=== PATIENT | male | born 1985 | race Caucasian/White ===

== ENCOUNTER 2016-08-03 14:14 | Inpatient (IN) | payer OTHER ==
[2016-08-03 14:56] VITALS: BMI 23.3
--- NOTE | 2016-08-03 17:18 | HP ---
Admission [facility] Chief Complaint: I need to stop drinking , i need help and my program encouraged me to come . Allergies/Adverse Reactions: Allergies Allergy/AdvReac Type Severity Reaction Status Date / Time No Known Allergies Allergy Verified 08/03/16 16:04 History of Present Illness: 30 y/o m pt with h/o binge drinking seeking rehab. Exam Limitations: No Limitations - Ebola screening Have you traveled outside of the country in the last 21 days: No Have you had contact with anyone from an Ebola affected area: No Have you been sick,other than usual withdrawal symptoms: No Do you have a fever: No - Review of Systems Constitutional: Loss of Appetite EENT: reports: No Symptoms Reported Respiratory: reports: No Symptoms reported Cardiac: reports: No Symptoms Reported GI: reports: No Symptoms Reported : reports: No Symptoms Reported Musculoskeletal: reports: No Symptoms Reported Integumentary: reports: No Symptoms Reported Neuro: reports: Tremors, Other (black hx) Endocrine: reports: No Symptoms Reported Hematology: reports: No Symptoms Reported Psychiatric: reports: Agitated, Anxious, Depressed Other Systems: Reviewed and Negative Patient History - Patient Medical History Hx Anemia: No Hx Asthma: No Hx Chronic Obstructive Pulmonary Disease (COPD): No Hx Cancer: No Hx Cardiac Disorders: No Hx Congestive Heart Failure: No Hx Hypertension: No Hx Hypercholesterolemia: No Hx Pacemaker: No HX Cerebrovascular Accident: No Hx Seizures: No (but h/o blackout -last 1 week ago ) Hx Dementia: No Hx Diabetes: No Hx Gastrointestinal Disorders: No Hx Liver Disease: No Hx Genitourinary Disorders: No Hx Sexually Transmitted Disorders: No Hx Renal Disease (ESRD): No Hx Thyroid Disease: No Hx Human Immunodeficiency Virus (HIV): No (2014-negative ) Hx Hepatitis C: No Hx Depression: Yes Hx Suicide Attempt: No Hx Bipolar Disorder: No Hx Schizophrenia: No - Patient Surgical History Past Surgical History: No - PPD History Documented Results: Negative w/o proof PPD to be Administered?: Yes - Reproductive History Patient is a Female of Child Bearing Age (11 -55 yrs old): No - Smoking Cessation Smoking history: Current every day smoker Have you smoked in the past 12 months: Yes Aproximately how many cigarettes per day: 10 Cigars Per Day: 0 Hx Chewing Tobacco Use: No Initiated information on smoking cessation: Yes 'Breaking Loose' booklet given: 08/03/16 - Substance & Tx. History Hx Alcohol Use: Yes Hx Substance Use: No Substance Use Type: Alcohol Hx Substance Use Treatment: Yes ([facility]) - Substances Abused Alcohol Route: Oral Frequency: 1-2 times per week Amount used: Vodka 1 liter /use Age of first use: 15 Date of Last Use: 08/02/16 Family Disease History - Family Disease History Family Disease History: CA: Father (rectal CA) Admission Physical Exam [facility] - Vital Signs Vital Signs: Vital Signs - 24 hr 08/03/16 14:28 Temperature 96.8 F L Pulse Rate 76 Respiratory 18 Rate Blood Pressure 150/81 30 y/o m pt [id number] nad ambulating well , cooperative with exam. Cleared for Admission [facility] - Detox or Rehab Claeared for Rehab Admission: Yes [facility] Breath Alcohol Content Breath Alcohol Content: 0 Urine Drug Screen - Results Drug Screen Negative: No Urine Drug Screen Results: BZO-Benzodiazepines
[2016-08-03] MEDS ORDERED: guaiFENesin/D-METHORPHAN HB 10 ML UNIT-DOSE CUPS PO PRN (17:27)
[2016-08-03] MEDS ORDERED: MENTHOL/PHENOL 1 EACH UD MM PRN (17:27)
[2016-08-03] MEDS ORDERED: MAGNESIUM HYDROX 2400MG/30ML ORAL SUSPENSION 30 ML CUP PO PRN (17:27)
[2016-08-03] MEDS ORDERED: P-EPHED 60MG/TRIPROLIDI 2.5MG TABLET PO PRN (17:27)
[2016-08-03] MEDS ORDERED: ACETAMINOPHEN 325 MG TABLET (FP) PO PRN (17:27)
[2016-08-03] MEDS ORDERED: IBUPROFEN 400 MG TABLET (FP) PO PRN (17:27)
[2016-08-03] MEDS ORDERED: LOPERAMIDE HCL 2 MG CAPSULE PO PRN (17:27)
[2016-08-03] MEDS ORDERED: diphenhydrAMINE HCL 50 MG CAPSULE PO PRN (17:27)
[2016-08-03] MEDS ORDERED: MAG HYDROX/AL HYDROX/SIMETH 30 ML UNIT-DOSE CUP PO PRN (17:27)
[2016-08-03] MEDS ORDERED: MAGNESIUM CITRATE 300 ML BOTTLE PO PRN (17:27)
[2016-08-03] MEDS ORDERED: TUBERCULIN PPD 5 TU/0.1ML VIAL ID ONE (19:00)
[2016-08-03 20:10] LABS: URINE APPEARANCE CLEAR; URINE BILIRUBIN NEGATIVE (NEGATIVE); URINE BLOOD NEGATIVE (NEGATIVE); URINE COLOR LTYELLOW; URINE GLUCOSE (UA) NEGATIVE (NEGATIVE); URINE KETONE NEGATIVE (NEGATIVE); URINE LEUK ESTERASE NEGATIVE (NEGATIVE); URINE NITRITE NEGATIVE (NEGATIVE); URINE PROTEIN NEGATIVE (NEGATIVE); URINE UROBILINOGEN NEGATIVE E.U./dl (0.2-1.0)
[2016-08-03] MEDS: THIAMINE HCL 100 MG TABLET (FP) PO SCH (22:53)
[2016-08-03] MEDS ORDERED: MIRTAZAPINE 15 MG TABLET (FP) PO SCH (23:00)
--- NOTE | 2016-08-04 07:04 | HP ---
Psychiatrist Admission - Data Date of interview: 08/04/16 Admission source: [facility] Identifying data: This is the first [facility] Rehabilitation admission for this 30 years old single . unemployed on public assistance, domiciled living in a studio apartment Medical History: None reported. Smokes 10 cigarettes daily Psychiatric History: Reports that his first psychiatric contact was in Mar 2014 at [facility]. He saw Dr Abdul for anxiety and was prescribed Inderal 10 mg po TID and Zoloft 100 mg po daily. He attended [facility] till January 2016. From Apr 2016, he has been seeing Dr Marie at [facility] and in addition to Inderal 10 mg po TID and Zoloft 100 mg po daily, he was prescribed Remeron 15 mg po HS.Denies previous history of psychiatric hospitalization or suicidal attempt Physical/Sexual Abuse/Trauma History: Denies history of physical, sexualabuse as well as DV relationship Additional Comment: Reports history of 3 misdemeanor arrests on charges of DUI, DWI and Assult/menacing. Reports being currently on probation till March 2017 Vital Signs: Vital Signs - 24 hr 08/03/16 08/04/16 08/04/16 14:28 01:18 03:30 Temperature 96.8 F L Pulse Rate 76 Respiratory 18 20 18 Rate Blood Pressure 150/81 08/04/16 07:01 Temperature 97.8 F Pulse Rate 47 L Respiratory 18 Rate Blood Pressure 144/90 Allergies/Adverse Reactions: Allergies Allergy/AdvReac Type Severity Reaction Status Date / Time No Known Allergies Allergy Verified 08/03/16 16:04 Date of last physical exam: 08/03/16 Concur with the findings of this exam: Yes - Substance Abuse/Tx History Hx Alcohol Use: Yes Hx Substance Use: No Substance Use Type: Alcohol (Started drinking alcohol at age 15, consumes one liter 1-2 times weekly. Last drink on 08/02/16), Cocaine (Started using cocaine at age 16, consumes one gram weekly. Last used on in Mar 2016) Hx Substance Use Treatment: Yes (one previous inpt detox & 3 previous inpt rehab ) - Admission Criteria Previous failed treatment: No Poor recovery environment: Yes Comorbidities: Yes Lacks judgement: Yes Mental Status Exam - Mental Status Exam Alert and Oriented to: Time, Place, Person Cognitive Function: Fair Patient Appearance: Well Groomed Mood: Hopeful, Euthymic Affect: Appropriate Patient Behavior: Cooperative Speech Pattern: Clear Voice Loudness: Normal Thought Process: Goal Oriented Thought Disorder: Not Present Hallucinations: Denies Suicidal Ideation: Denies Homicidal Ideation: Denies Insight/Judgement: Fair Sleep: Fair Appetite: Good Muscle strength/Tone: Normal Gait/Station: Normal Psychiatric Findings - Problem List ([place] 1, 2,3) (1) Alcohol dependence Current Visit: Yes Status: Acute (2) Nicotine dependence Current Visit: Yes Status: Acute (3) Anxiety disorder Current Visit: Yes Status: Acute (4) Alcohol-induced anxiety disorder Current Visit: Yes Status: Ruled-out - Initial Treatment Plan Initial Treatment Plan: 1) Continue Inderal 10 mg po TID, Zoloft 100 mg po daily and Remeron 15 mg po HS. 2) Monitor progress
[2016-08-04] MEDS: SERTRALINE HCL 50 MG TABLET (FP) PO SCH (09:57)
[2016-08-04] MEDS: NICOTINE 21 MG/24 HOURS TOPICAL PATCH TD SCH (09:57)
[2016-08-04] MEDS: PRENATAL VITAMINS W/ FOLIC ACID TABLET (FP) PO SCH (09:57)
[2016-08-04 10:24] LABS: ALBUMIN 4.2 g/dl (3.4-5.0); BILIRUBIN,TOTAL 0.4 mg/dL (0.2-1.0); CALCIUM 9.3 mg/dL (8.5-10.1); CREATININE 1.4 mg/dL (0.7-1.3)
[2016-08-04 10:57] LABS: HIV 1 & 2 AB NEGATIVE; HIV 1 AGp24 NEGATIVE
[2016-08-04 11:11] LABS: MCH 32.5 pg (25.7-33.7); MCHC 34.2 g/dl (32.0-35.9); MEAN PLT VOLUME 9.4 fl (7.5-11.1); PLATELET COUNT 199 K/MM3 (134-434); WHITE BLOOD COUNT 8.4 K/mm3 (4.0-10.0)
[2016-08-04] MEDS ORDERED: SERTRALINE HCL 50 MG TABLET (FP) PO SCH (11:30)
[2016-08-04] MEDS: PROPRANOLOL HCL 10 MG TABLET (FP) PO SCH ×2 (14:23→21:41)
[2016-08-04] MEDS: THIAMINE HCL 100 MG TABLET (FP) PO SCH (21:41)
[2016-08-04] MEDS: MIRTAZAPINE 15 MG TABLET (FP) PO SCH (23:33)
[2016-08-05] MEDS: PROPRANOLOL HCL 10 MG TABLET (FP) PO SCH ×3 (06:09→21:13)
[2016-08-05] MEDS: SERTRALINE HCL 50 MG TABLET (FP) PO SCH (10:35)
[2016-08-05] MEDS: PRENATAL VITAMINS W/ FOLIC ACID TABLET (FP) PO SCH (10:35)
[2016-08-05] MEDS: NICOTINE 21 MG/24 HOURS TOPICAL PATCH TD SCH (10:35)
--- NOTE | 2016-08-05 10:35 | EKG ---
Test Reason : Blood Pressure : / mmHG Vent. Rate : 062 BPM Atrial Rate : 062 BPM P-R Int : 108 ms QRS Dur : 092 ms QT Int : 430 ms P-R-T Axes : 072 071 040 degrees QTc Int : 436 ms SINUS RHYTHM NONSPECIFIC T WAVE ABNORMALITY ABNORMAL ECG NO PREVIOUS ECGS AVAILABLE Confirmed by KEVIN MOORE, HUNTER ([id number]) on 08/05/2016 10:34:43 AM Referred By: Ondina Haines Confirmed By:HUNTER BROWN MD
[2016-08-05] MEDS: THIAMINE HCL 100 MG TABLET (FP) PO SCH (21:13)
[2016-08-05] MEDS: MIRTAZAPINE 15 MG TABLET (FP) PO SCH (21:13)
[2016-08-06] MEDS: PROPRANOLOL HCL 10 MG TABLET (FP) PO SCH ×3 (06:16→21:17)
[2016-08-06] MEDS: PRENATAL VITAMINS W/ FOLIC ACID TABLET (FP) PO SCH (10:16)
[2016-08-06] MEDS: NICOTINE 21 MG/24 HOURS TOPICAL PATCH TD SCH (10:16)
[2016-08-06] MEDS: SERTRALINE HCL 50 MG TABLET (FP) PO SCH (10:16)
[2016-08-06] MEDS: THIAMINE HCL 100 MG TABLET (FP) PO SCH (21:16)
[2016-08-06] MEDS: MIRTAZAPINE 15 MG TABLET (FP) PO SCH (21:17)
[2016-08-07] MEDS: PROPRANOLOL HCL 10 MG TABLET (FP) PO SCH ×3 (06:40→21:19)
[2016-08-07] MEDS: NICOTINE 21 MG/24 HOURS TOPICAL PATCH TD SCH (10:10)
[2016-08-07] MEDS: PRENATAL VITAMINS W/ FOLIC ACID TABLET (FP) PO SCH (10:10)
[2016-08-07] MEDS: SERTRALINE HCL 50 MG TABLET (FP) PO SCH (10:10)
[2016-08-07] MEDS: THIAMINE HCL 100 MG TABLET (FP) PO SCH (21:19)
[2016-08-07] MEDS: MIRTAZAPINE 15 MG TABLET (FP) PO SCH (21:19)
[2016-08-08] MEDS: PROPRANOLOL HCL 10 MG TABLET (FP) PO SCH ×3 (06:16→21:10)
[2016-08-08] MEDS: NICOTINE 21 MG/24 HOURS TOPICAL PATCH TD SCH (10:02)
[2016-08-08] MEDS: SERTRALINE HCL 50 MG TABLET (FP) PO SCH (10:02)
[2016-08-08] MEDS: PRENATAL VITAMINS W/ FOLIC ACID TABLET (FP) PO SCH (10:02)
[2016-08-08] MEDS: NICOTINE POLACRILEX 4 MG GUM BC PRN ×2 (10:21→14:33)
[2016-08-08] MEDS: MIRTAZAPINE 15 MG TABLET (FP) PO SCH (21:10)
[2016-08-08] MEDS: THIAMINE HCL 100 MG TABLET (FP) PO SCH (21:10)
[2016-08-09] MEDS: PROPRANOLOL HCL 10 MG TABLET (FP) PO SCH ×3 (06:15→21:17)
[2016-08-09] MEDS: PRENATAL VITAMINS W/ FOLIC ACID TABLET (FP) PO SCH (10:23)
[2016-08-09] MEDS: SERTRALINE HCL 50 MG TABLET (FP) PO SCH (10:23)
[2016-08-09] MEDS: NICOTINE 21 MG/24 HOURS TOPICAL PATCH TD SCH (10:25)
[2016-08-09] MEDS: NICOTINE POLACRILEX 4 MG GUM BC PRN ×2 (10:26→14:14)
[2016-08-09] MEDS: MIRTAZAPINE 15 MG TABLET (FP) PO SCH (21:17)
[2016-08-09] MEDS: THIAMINE HCL 100 MG TABLET (FP) PO SCH (21:17)
[2016-08-10] MEDS: PROPRANOLOL HCL 10 MG TABLET (FP) PO SCH ×3 (06:00→21:13)
[2016-08-10] MEDS: PRENATAL VITAMINS W/ FOLIC ACID TABLET (FP) PO SCH (10:17)
[2016-08-10] MEDS: SERTRALINE HCL 50 MG TABLET (FP) PO SCH (10:17)
[2016-08-10] MEDS: NICOTINE 21 MG/24 HOURS TOPICAL PATCH TD SCH (10:17)
[2016-08-10] MEDS: NICOTINE POLACRILEX 4 MG GUM BC PRN (10:18)
[2016-08-10] MEDS: MIRTAZAPINE 15 MG TABLET (FP) PO SCH (21:13)
[2016-08-10] MEDS: THIAMINE HCL 100 MG TABLET (FP) PO SCH (21:13)
[2016-08-11] MEDS: PROPRANOLOL HCL 10 MG TABLET (FP) PO SCH ×3 (06:03→21:05)
[2016-08-11] MEDS: SERTRALINE HCL 50 MG TABLET (FP) PO SCH (10:31)
[2016-08-11] MEDS: PRENATAL VITAMINS W/ FOLIC ACID TABLET (FP) PO SCH (10:31)
[2016-08-11] MEDS: NICOTINE 21 MG/24 HOURS TOPICAL PATCH TD SCH (10:33)
[2016-08-11] MEDS: NICOTINE POLACRILEX 4 MG GUM BC PRN ×2 (10:33→18:27)
[2016-08-11] MEDS: THIAMINE HCL 100 MG TABLET (FP) PO SCH (21:05)
[2016-08-11] MEDS: MIRTAZAPINE 15 MG TABLET (FP) PO SCH (21:05)
[2016-08-12] MEDS: PROPRANOLOL HCL 10 MG TABLET (FP) PO SCH ×3 (06:23→21:35)
[2016-08-12] MEDS: SERTRALINE HCL 50 MG TABLET (FP) PO SCH (10:55)
[2016-08-12] MEDS: PRENATAL VITAMINS W/ FOLIC ACID TABLET (FP) PO SCH (10:55)
[2016-08-12] MEDS: NICOTINE 21 MG/24 HOURS TOPICAL PATCH TD SCH (11:24)
[2016-08-12] MEDS: NICOTINE POLACRILEX 4 MG GUM BC PRN ×3 (11:26→21:35)
[2016-08-12] MEDS: THIAMINE HCL 100 MG TABLET (FP) PO SCH (21:35)
[2016-08-12] MEDS: MIRTAZAPINE 15 MG TABLET (FP) PO SCH (21:35)
[2016-08-13] MEDS: PROPRANOLOL HCL 10 MG TABLET (FP) PO SCH ×3 (06:38→21:36)
[2016-08-13] MEDS: NICOTINE POLACRILEX 4 MG GUM BC PRN ×2 (06:39→10:30)
[2016-08-13] MEDS: SERTRALINE HCL 50 MG TABLET (FP) PO SCH (10:29)
[2016-08-13] MEDS: PRENATAL VITAMINS W/ FOLIC ACID TABLET (FP) PO SCH (10:29)
[2016-08-13] MEDS: NICOTINE 21 MG/24 HOURS TOPICAL PATCH TD SCH (10:29)
[2016-08-13] MEDS: MIRTAZAPINE 15 MG TABLET (FP) PO SCH (21:35)
[2016-08-13] MEDS: THIAMINE HCL 100 MG TABLET (FP) PO SCH (21:36)
[2016-08-14] MEDS: PROPRANOLOL HCL 10 MG TABLET (FP) PO SCH ×3 (06:02→21:08)
[2016-08-14] MEDS: PRENATAL VITAMINS W/ FOLIC ACID TABLET (FP) PO SCH (10:30)
[2016-08-14] MEDS: SERTRALINE HCL 50 MG TABLET (FP) PO SCH (10:30)
[2016-08-14] MEDS: NICOTINE 21 MG/24 HOURS TOPICAL PATCH TD SCH (10:30)
[2016-08-14] MEDS: NICOTINE POLACRILEX 4 MG GUM BC PRN ×3 (10:31→21:08)
[2016-08-14] MEDS: MIRTAZAPINE 15 MG TABLET (FP) PO SCH (21:08)
[2016-08-14] MEDS: THIAMINE HCL 100 MG TABLET (FP) PO SCH (21:08)
[2016-08-15] MEDS: PROPRANOLOL HCL 10 MG TABLET (FP) PO SCH ×3 (05:59→21:20)
[2016-08-15] MEDS: NICOTINE POLACRILEX 4 MG GUM BC PRN ×4 (06:24→21:20)
[2016-08-15] MEDS: PRENATAL VITAMINS W/ FOLIC ACID TABLET (FP) PO SCH (10:37)
[2016-08-15] MEDS: SERTRALINE HCL 50 MG TABLET (FP) PO SCH (10:37)
[2016-08-15] MEDS: NICOTINE 21 MG/24 HOURS TOPICAL PATCH TD SCH (10:38)
[2016-08-15] MEDS: THIAMINE HCL 100 MG TABLET (FP) PO SCH (21:20)
[2016-08-15] MEDS: MIRTAZAPINE 15 MG TABLET (FP) PO SCH (21:20)
[2016-08-16] MEDS: PROPRANOLOL HCL 10 MG TABLET (FP) PO SCH ×3 (06:13→21:17)
[2016-08-16] MEDS: NICOTINE POLACRILEX 4 MG GUM BC PRN ×3 (06:14→14:19)
[2016-08-16] MEDS: PRENATAL VITAMINS W/ FOLIC ACID TABLET (FP) PO SCH (10:15)
[2016-08-16] MEDS: NICOTINE 21 MG/24 HOURS TOPICAL PATCH TD SCH (10:16)
[2016-08-16] MEDS: SERTRALINE HCL 50 MG TABLET (FP) PO SCH (10:16)
[2016-08-16] MEDS: THIAMINE HCL 100 MG TABLET (FP) PO SCH (21:16)
[2016-08-16] MEDS: MIRTAZAPINE 15 MG TABLET (FP) PO SCH (21:16)
[2016-08-17] MEDS: PROPRANOLOL HCL 10 MG TABLET (FP) PO SCH ×3 (06:50→21:14)
[2016-08-17] MEDS: NICOTINE POLACRILEX 4 MG GUM BC PRN ×4 (06:51→21:14)
[2016-08-17] MEDS: NICOTINE 21 MG/24 HOURS TOPICAL PATCH TD SCH (10:18)
[2016-08-17] MEDS: PRENATAL VITAMINS W/ FOLIC ACID TABLET (FP) PO SCH (10:18)
[2016-08-17] MEDS: SERTRALINE HCL 50 MG TABLET (FP) PO SCH (10:18)
[2016-08-17] MEDS: MIRTAZAPINE 15 MG TABLET (FP) PO SCH (21:14)
[2016-08-17] MEDS: THIAMINE HCL 100 MG TABLET (FP) PO SCH (21:14)
[2016-08-18] MEDS: PROPRANOLOL HCL 10 MG TABLET (FP) PO SCH ×3 (06:36→21:06)
[2016-08-18] MEDS: NICOTINE POLACRILEX 4 MG GUM BC PRN ×3 (06:38→14:13)
[2016-08-18] MEDS: PRENATAL VITAMINS W/ FOLIC ACID TABLET (FP) PO SCH (10:21)
[2016-08-18] MEDS: SERTRALINE HCL 50 MG TABLET (FP) PO SCH (10:21)
[2016-08-18] MEDS: NICOTINE 21 MG/24 HOURS TOPICAL PATCH TD SCH (10:21)
[2016-08-18] MEDS: THIAMINE HCL 100 MG TABLET (FP) PO SCH (21:06)
[2016-08-18] MEDS: MIRTAZAPINE 15 MG TABLET (FP) PO SCH (21:06)
[2016-08-19] MEDS: PROPRANOLOL HCL 10 MG TABLET (FP) PO SCH ×3 (06:52→21:30)
[2016-08-19] MEDS: NICOTINE POLACRILEX 4 MG GUM BC PRN ×3 (06:53→14:06)
[2016-08-19] MEDS: SERTRALINE HCL 50 MG TABLET (FP) PO SCH (10:22)
[2016-08-19] MEDS: PRENATAL VITAMINS W/ FOLIC ACID TABLET (FP) PO SCH (10:22)
[2016-08-19] MEDS: NICOTINE 21 MG/24 HOURS TOPICAL PATCH TD SCH (10:23)
[2016-08-19] MEDS: THIAMINE HCL 100 MG TABLET (FP) PO SCH (21:30)
[2016-08-19] MEDS: MIRTAZAPINE 15 MG TABLET (FP) PO SCH (21:31)
[2016-08-20] MEDS: PROPRANOLOL HCL 10 MG TABLET (FP) PO SCH ×3 (06:37→21:10)
[2016-08-20] MEDS: NICOTINE POLACRILEX 4 MG GUM BC PRN ×3 (06:37→14:50)
[2016-08-20] MEDS: PRENATAL VITAMINS W/ FOLIC ACID TABLET (FP) PO SCH (10:14)
[2016-08-20] MEDS: NICOTINE 21 MG/24 HOURS TOPICAL PATCH TD SCH (10:15)
[2016-08-20] MEDS: SERTRALINE HCL 50 MG TABLET (FP) PO SCH (10:15)
[2016-08-20] MEDS: MIRTAZAPINE 15 MG TABLET (FP) PO SCH (21:10)
[2016-08-20] MEDS: THIAMINE HCL 100 MG TABLET (FP) PO SCH (21:10)
[2016-08-21] MEDS: PROPRANOLOL HCL 10 MG TABLET (FP) PO SCH ×3 (06:25→21:22)
[2016-08-21] MEDS: NICOTINE POLACRILEX 4 MG GUM BC PRN ×3 (06:26→14:11)
[2016-08-21] MEDS: SERTRALINE HCL 50 MG TABLET (FP) PO SCH (10:48)
[2016-08-21] MEDS: NICOTINE 21 MG/24 HOURS TOPICAL PATCH TD SCH (10:48)
[2016-08-21] MEDS: PRENATAL VITAMINS W/ FOLIC ACID TABLET (FP) PO SCH (10:48)
[2016-08-21] MEDS: MIRTAZAPINE 15 MG TABLET (FP) PO SCH (21:21)
[2016-08-21] MEDS: THIAMINE HCL 100 MG TABLET (FP) PO SCH (21:21)
[2016-08-22] MEDS: PROPRANOLOL HCL 10 MG TABLET (FP) PO SCH ×3 (05:51→21:03)
[2016-08-22] MEDS: NICOTINE POLACRILEX 4 MG GUM BC PRN ×3 (05:51→14:17)
[2016-08-22] MEDS: PRENATAL VITAMINS W/ FOLIC ACID TABLET (FP) PO SCH (10:17)
[2016-08-22] MEDS: NICOTINE 21 MG/24 HOURS TOPICAL PATCH TD SCH (10:17)
[2016-08-22] MEDS: SERTRALINE HCL 50 MG TABLET (FP) PO SCH (10:17)
[2016-08-22] MEDS: THIAMINE HCL 100 MG TABLET (FP) PO SCH (21:03)
[2016-08-22] MEDS: MIRTAZAPINE 15 MG TABLET (FP) PO SCH (21:03)
[2016-08-23] MEDS: NICOTINE POLACRILEX 4 MG GUM BC PRN ×3 (06:48→14:19)
[2016-08-23] MEDS: PROPRANOLOL HCL 10 MG TABLET (FP) PO SCH ×3 (06:48→21:00)
[2016-08-23] MEDS: PRENATAL VITAMINS W/ FOLIC ACID TABLET (FP) PO SCH (10:14)
[2016-08-23] MEDS: NICOTINE 21 MG/24 HOURS TOPICAL PATCH TD SCH (10:14)
[2016-08-23] MEDS: SERTRALINE HCL 50 MG TABLET (FP) PO SCH (10:15)
[2016-08-23] MEDS: THIAMINE HCL 100 MG TABLET (FP) PO SCH (21:00)
[2016-08-23] MEDS: MIRTAZAPINE 15 MG TABLET (FP) PO SCH (21:00)
[2016-08-24] MEDS: PROPRANOLOL HCL 10 MG TABLET (FP) PO SCH ×3 (06:04→21:11)
[2016-08-24] MEDS: PRENATAL VITAMINS W/ FOLIC ACID TABLET (FP) PO SCH (09:57)
[2016-08-24] MEDS: NICOTINE 21 MG/24 HOURS TOPICAL PATCH TD SCH (09:57)
[2016-08-24] MEDS: SERTRALINE HCL 50 MG TABLET (FP) PO SCH (09:58)
[2016-08-24] MEDS: NICOTINE POLACRILEX 4 MG GUM BC PRN ×2 (09:58→14:30)
[2016-08-24] MEDS: THIAMINE HCL 100 MG TABLET (FP) PO SCH (21:11)
[2016-08-24] MEDS: MIRTAZAPINE 15 MG TABLET (FP) PO SCH (21:11)
[2016-08-25] MEDS: NICOTINE POLACRILEX 4 MG GUM BC PRN ×3 (06:28→14:31)
[2016-08-25] MEDS: PROPRANOLOL HCL 10 MG TABLET (FP) PO SCH ×3 (06:28→21:07)
[2016-08-25] MEDS: SERTRALINE HCL 50 MG TABLET (FP) PO SCH (10:13)
[2016-08-25] MEDS: NICOTINE 21 MG/24 HOURS TOPICAL PATCH TD SCH (10:13)
[2016-08-25] MEDS: PRENATAL VITAMINS W/ FOLIC ACID TABLET (FP) PO SCH (10:13)
[2016-08-25] MEDS: THIAMINE HCL 100 MG TABLET (FP) PO SCH (21:07)
[2016-08-25] MEDS: MIRTAZAPINE 15 MG TABLET (FP) PO SCH (21:07)
[2016-08-26] MEDS: PROPRANOLOL HCL 10 MG TABLET (FP) PO SCH ×3 (07:12→21:03)
[2016-08-26] MEDS: SERTRALINE HCL 50 MG TABLET (FP) PO SCH (10:21)
[2016-08-26] MEDS: PRENATAL VITAMINS W/ FOLIC ACID TABLET (FP) PO SCH (10:21)
[2016-08-26] MEDS: NICOTINE 21 MG/24 HOURS TOPICAL PATCH TD SCH (10:21)
[2016-08-26] MEDS: NICOTINE POLACRILEX 4 MG GUM BC PRN (10:22)
[2016-08-26] MEDS: MIRTAZAPINE 15 MG TABLET (FP) PO SCH (21:02)
[2016-08-26] MEDS: THIAMINE HCL 100 MG TABLET (FP) PO SCH (21:02)
[2016-08-27] MEDS: PROPRANOLOL HCL 10 MG TABLET (FP) PO SCH ×3 (06:59→21:05)
[2016-08-27] MEDS: NICOTINE POLACRILEX 4 MG GUM BC PRN ×3 (07:01→13:24)
[2016-08-27] MEDS: NICOTINE 21 MG/24 HOURS TOPICAL PATCH TD SCH (10:01)
[2016-08-27] MEDS: SERTRALINE HCL 50 MG TABLET (FP) PO SCH (10:02)
[2016-08-27] MEDS: PRENATAL VITAMINS W/ FOLIC ACID TABLET (FP) PO SCH (10:02)
[2016-08-27] MEDS: THIAMINE HCL 100 MG TABLET (FP) PO SCH (21:04)
[2016-08-27] MEDS: MIRTAZAPINE 15 MG TABLET (FP) PO SCH (21:04)
[2016-08-28] MEDS: NICOTINE POLACRILEX 4 MG GUM BC PRN ×2 (06:23→10:17)
[2016-08-28] MEDS: PROPRANOLOL HCL 10 MG TABLET (FP) PO SCH ×3 (06:23→21:20)
[2016-08-28] MEDS: NICOTINE 21 MG/24 HOURS TOPICAL PATCH TD SCH (10:16)
[2016-08-28] MEDS: SERTRALINE HCL 50 MG TABLET (FP) PO SCH (10:16)
[2016-08-28] MEDS: PRENATAL VITAMINS W/ FOLIC ACID TABLET (FP) PO SCH (10:16)
[2016-08-28] MEDS: THIAMINE HCL 100 MG TABLET (FP) PO SCH (21:20)
[2016-08-28] MEDS: MIRTAZAPINE 15 MG TABLET (FP) PO SCH (21:20)
[2016-08-29] MEDS: NICOTINE POLACRILEX 4 MG GUM BC PRN ×4 (06:04→17:58)
[2016-08-29] MEDS: PROPRANOLOL HCL 10 MG TABLET (FP) PO SCH ×3 (06:04→21:02)
[2016-08-29] MEDS: SERTRALINE HCL 50 MG TABLET (FP) PO SCH (10:09)
[2016-08-29] MEDS: NICOTINE 21 MG/24 HOURS TOPICAL PATCH TD SCH (10:09)
[2016-08-29] MEDS: PRENATAL VITAMINS W/ FOLIC ACID TABLET (FP) PO SCH (10:09)
[2016-08-29] MEDS: MIRTAZAPINE 15 MG TABLET (FP) PO SCH (21:02)
[2016-08-29] MEDS: THIAMINE HCL 100 MG TABLET (FP) PO SCH (21:02)
[2016-08-30] MEDS: PROPRANOLOL HCL 10 MG TABLET (FP) PO SCH ×3 (06:23→21:05)
[2016-08-30] MEDS: NICOTINE POLACRILEX 4 MG GUM BC PRN ×4 (06:24→19:18)
--- NOTE | 2016-08-30 09:57 | PN ---
Psychiatric Progress Note Vital Signs: Vital Signs Period Temp Pulse Resp BP Sys/[place] Pulse Ox Last 24 Hr 98.6 F 66-68 18-18 121-131/71-80 Date of Session: 08/30/16 Chief Complaint:: Psychiatrist Discharge Note HPI: Patient addressing Alcohol Dependence comorbid with Nicotine Dependence and Anxiety Disorder Current Medications: Active Medications Generic Name Dose Route Start Last Admin Trade Name Freq PRN Reason Stop Dose Admin Acetaminophen 650 mg 08/03/16 17:27 Tylenol - PO Q4H PRN PAIN Al Hydroxide/Mg Hydroxide 30 ml 08/03/16 17:27 Mylanta Oral Suspension - PO Q6H PRN DYSPEPSIA Diphenhydramine HCl 50 mg 08/03/16 17:27 Benadryl - PO HSMR1 PRN INSOMNIA Eucalyptus/Menthol/Phenol/Sorbitol 1 each 08/03/16 17:27 Cepastat Lozenge - MM Q4H PRN SORE THROAT Guaifenesin 10 ml 08/03/16 17:27 Robitussin Dm - PO Q6H PRN COUGH Ibuprofen 400 mg 08/03/16 17:27 Motrin - PO Q6H PRN SEVERE PAIN Loperamide HCl 4 mg 08/03/16 17:27 Imodium - PO Q6H PRN DIARRHEA Magnesium Citrate 300 ml 08/03/16 17:27 Citroma - PO Q48H PRN CONSTIPATION Magnesium Hydroxide 30 ml 08/03/16 17:27 Milk Of Magnesia - PO DAILY PRN CONSTIPATION Mirtazapine 15 mg 08/04/16 22:00 08/29/16 21:02 Remeron - PO 15 mg HS CLAY Administration Nicotine 21 mg 08/04/16 10:00 08/29/16 10:09 Nicoderm Patch - TD 21 mg DAILY CLAY Administration Nicotine Polacrilex 4 mg 08/03/16 17:27 08/30/16 06:24 Nicorette Gum - BC 4 mg Q2H PRN Administration NICOTINE REPLACEMENT RX Multivit/Folic Acid/Iron 1 tab 08/04/16 10:00 08/29/16 10:09 Vitamins (Sjr) - PO 1 tab DAILY CLAY Administration Propranolol HCl 10 mg 08/04/16 14:00 08/30/16 06:23 Inderal - PO 10 mg TID CLAY Administration Pseudoephedrine/Triprolidine 1 combo 08/03/16 17:27 Actifed - PO TID PRN NASAL CONGESTION Sertraline HCl 100 mg 08/04/16 10:00 08/29/16 10:09 Zoloft - PO 100 mg DAILY CLAY Administration Thiamine HCl 100 mg 08/03/16 22:00 08/29/16 21:02 Vitamin B1 - PO 100 mg HS CLAY Administration Current Side Effect: No Lab tests ordered: Yes Lab tests reviewed: Yes Provider note:: Patient will complete this program on 08/31/16. He has met his treatment goals and will continue to address his issues in outpatient treatment at [facility] at [address] [place] [address]. He verbalized understanding of the consequences of his addiction and from his participation in this program , he has learned the importance oh having a sober network in order to maintain abstinence. He responded well to Inderal 10 mg po TID, Remeron 15 mg po HS and Zoloft 100 mg po daily. Scripts for 30 day supply of medication will be electronically transmitted to [facility] at [address] [place] [address]. He is stable for discharge on 08/31/16 Total face to face time:: 35 Psychiatric Treatment Plan - Problem List (1) Alcohol dependence Current Visit: Yes (2) Nicotine dependence Current Visit: Yes (3) Anxiety disorder Current Visit: Yes (4) Alcohol-induced anxiety disorder Current Visit: Yes Initial treatment plan: Patient will be discharged tomorrow and referred to [facility] for outpatient treatment
[2016-08-30] MEDS: NICOTINE 21 MG/24 HOURS TOPICAL PATCH TD SCH (10:02)
[2016-08-30] MEDS: PRENATAL VITAMINS W/ FOLIC ACID TABLET (FP) PO SCH (10:03)
[2016-08-30] MEDS: SERTRALINE HCL 50 MG TABLET (FP) PO SCH (10:03)
[2016-08-30] MEDS: MIRTAZAPINE 15 MG TABLET (FP) PO SCH (21:05)
[2016-08-30] MEDS: THIAMINE HCL 100 MG TABLET (FP) PO SCH (21:05)
[2016-08-31] MEDS: PROPRANOLOL HCL 10 MG TABLET (FP) PO SCH (06:15)
[2016-08-31 07:49] VITALS: BP 125/76; PULSE 69; TEMP 97.7
== END 2016-08-31 09:05 | disposition home or self-care (01) | DRG 772 ==
LOC: YASAS 14:14 → Y3W 18:31
PROVIDERS: ADMIT Psychiatry & Neurology Psychiatry; ATTEND Psychiatry & Neurology Psychiatry
PROC: HZ42ZZZ Group Counseling for Substance Abuse Treatment, Cognitive-Behavioral (ICD-10-PCS; principal; 2016-08-31)
DX: F10.280 Alcohol dependence with alcohol-induced anxiety disorder (principal); F17.210 Nicotine dependence, cigarettes, uncomplicated; F41.9 Anxiety disorder, unspecified
CPT/HCPCS: 36415; 80053; 81003; 85027; 86593; 87389; 93005; 93010

== ENCOUNTER 2021-08-17 04:36 | Emergency (ER) | payer OTHER ==
[2021-08-17 04:48] VITALS: BMI 32.5
[2021-08-17] MEDS ORDERED: ACETAMINOPHEN 1000 MG/100 ML BAG IVPB ONE (05:02)
[2021-08-17] MEDS ORDERED: SODIUM CHLORIDE 0.9% 500 ML INFUS.BAG IV ONE (05:02)
[2021-08-17] MEDS ORDERED: ACETAMINOPHEN INJECTION 100 ML IVPB ONE (05:03)
[2021-08-17 05:28] LABS: BASO % 1.2 % (0-2.0); EOS % 0.6 % (0-4.5); HEMATOCRIT 46.3 % (35.4-49); HEMOGLOBIN 15.5 GM/dL (11.7-16.9); LYMPH % 15.4 % (8-40); MCH 30.1 pg (25.7-33.7); MCHC 33.4 g/dl (32.0-35.9); MEAN CELL VOLUME 90.1 fl (80-96); MEAN PLT VOLUME 8.6 fl (7.5-11.1); MONO % 9.5 % (3.8-10.2); NEUT % 73.3 % (42.8-82.8); PLATELET COUNT 309 10^3/uL (134-434); RBC 5.13 M/mm3 (4.00-5.60); RDW 13.9 % (11.9-15.9); WHITE BLOOD COUNT 12.9 K/mm3 (4.0-10.0)
[2021-08-17 05:31] LABS: EPI CELLS 6 /uL (0-25.1); HYALINE CASTS 2 /uL (0-3.1); PH,URINE 5.5 (5.0-8.0); URINE APPEARANCE CLEAR; URINE BACTERIA 10 /uL (0-1359); URINE BILIRUBIN NEGATIVE (NEGATIVE); URINE COLOR YELLOW; URINE GLUCOSE (UA) NEGATIVE (NEGATIVE); URINE KETONE TRACE (NEGATIVE); URINE LEUK ESTERASE NEGATIVE (NEGATIVE); URINE NITRITE NEGATIVE (NEGATIVE); URINE PROTEIN 1+ (NEGATIVE); URINE RBC 1434 /uL (0-23.9); URINE UROBILINOGEN 0.2 mg/dL (0.2-1.0); URINE WBC 17 /uL (0-25.8)
[2021-08-17 05:57] LABS: CHLORIDE 104 mmol/L (98-107); SODIUM 140 mmol/L (136-145)
[2021-08-17 05:58] LABS: ANION GAP 9 MMOL/L (8-16); BLOOD UREA NITROGEN 20.2 mg/dL (7-18); CALCIUM 10.3 mg/dL (8.5-10.1); CO2 27 mmol/L (21-32); LIPASE 179 U/L (73-393)
[2021-08-17 05:59] LABS: ALBUMIN 4.5 g/dl (3.4-5.0); GLUCOSE,RANDOM 192 mg/dL (74-106)
[2021-08-17 06:02] LABS: CREATININE 1.3 mg/dL (0.55-1.3); SGPT/ALT 109 U/L (13-61)
[2021-08-17 06:03] LABS: BILIRUBIN,TOTAL 0.3 mg/dL (0.2-1); SGOT/AST 32 U/L (15-37); TOT PROT 7.5 g/dl (6.4-8.2)
[2021-08-17] MEDS ORDERED: KETOROLAC TROMETHAMINE 15 MG/ML VIAL IVPUSH ONE (06:03)
[2021-08-17 06:05] LABS: ALK PHOS 105 U/L (45-117)
[2021-08-17] MEDS ORDERED: KETOROLAC TROMETHAMINE 15 MG/ML VIAL ONE (06:13)
[2021-08-17 06:26] VITALS: BP 125/76; PULSE 75; TEMP 98.3
== END 2021-08-17 06:26 | disposition home or self-care (01) ==
LOC: JER 04:36
PROC: 3E033NZ Introduction of Analgesics, Hypnotics, Sedatives into Peripheral Vein, Percutaneous Approach (ICD-10-PCS; principal; 2021-08-17)
PROC: 3E0333Z Introduction of Anti-inflammatory into Peripheral Vein, Percutaneous Approach (ICD-10-PCS; 2021-08-17)
DX: N23 Unspecified renal colic (principal)
CPT/HCPCS: 36415; 74176-TC; 80053; 81003; 82550; 82553; 83690; 84484; 85025; 87086; 93005; 93010; 99285-25; J0131

== ENCOUNTER 2022-01-31 19:28 | Emergency (ER) | payer OTHER ==
[2022-01-31 19:40] VITALS: BP 143/90; PULSE 103; TEMP 98.8; BMI 31.1
[2022-01-31] MEDS ORDERED: LIDOCAINE 5% TOPICAL PATCH TP ONE (19:51)
[2022-01-31] MEDS ORDERED: ACETAMINOPHEN 1000 MG/100 ML BAG IVPB ONE (19:51)
[2022-01-31] MEDS ORDERED: SODIUM CHLORIDE 0.9% 500 ML INFUS.BAG IV ONE (20:00)
[2022-01-31] MEDS ORDERED: LIDOCAINE 5% TOPICAL PATCH ONE (20:13)
[2022-01-31] MEDS ORDERED: ACETAMINOPHEN INJECTION 100 ML IVPB ONE (20:13)
[2022-01-31 20:28] LABS: BASO % 0.7 % (0-2.0); EOS % 0.7 % (0-4.5); HEMATOCRIT 48.7 % (35.4-49); HEMOGLOBIN 16.8 GM/dL (11.7-16.9); LYMPH % 29.6 % (8-40); MCH 31.8 pg (25.7-33.7); MCHC 34.5 g/dl (32.0-35.9); MEAN PLT VOLUME 7.6 fl (7.5-11.1); MONO % 15.9 % (3.8-10.2); NEUT % 53.1 % (42.8-82.8); PLATELET COUNT 293 10^3/uL (134-434); RBC 5.29 M/mm3 (4.00-5.60); RDW 15.2 % (11.9-15.9); WHITE BLOOD COUNT 11.1 K/mm3 (4.0-10.0)
[2022-01-31 20:48] LABS: CALCIUM 9.1 mg/dL (8.5-10.1)
[2022-01-31 20:49] LABS: BLOOD UREA NITROGEN 14.4 mg/dL (7-18)
[2022-01-31 20:53] LABS: TOT PROT 7.7 g/dl (6.4-8.2)
[2022-01-31 20:54] LABS: BILIRUBIN,TOTAL 0.5 mg/dL (0.2-1)
[2022-01-31] MEDS ORDERED: LIDOCAINE PATCH REMOVAL MC SCH (22:00)
== END 2022-01-31 21:22 | disposition left against medical advice (07) ==
LOC: JER 19:28
PROC: 3E0333Z Introduction of Anti-inflammatory into Peripheral Vein, Percutaneous Approach (ICD-10-PCS; principal; 2022-01-31)
DX: M54.50 Low back pain, unspecified (principal)
CPT/HCPCS: 36415; 74176-TC; 80053; 85025; 99284-25

== ENCOUNTER 2022-04-01 18:17 | Inpatient (IN) | payer OTHER ==
[2022-04-01 20:34] VITALS: BMI 29.0
[2022-04-01] MEDS ORDERED: MELATONIN 5 MG TABLETS PO PRN (20:42)
[2022-04-01] MEDS ORDERED: BENZOCAINE/MENTHOL (CHLORASEPTIC ) LOZENGE MM PRN (20:42)
[2022-04-01] MEDS ORDERED: NICOTINE 10 MG CARTRIDGE (INHALER) IH PRN (20:42)
[2022-04-01] MEDS ORDERED: guaiFENesin 200 MG/10 ML 10 ML UNIT-DOSE CUPS PO PRN (20:42)
[2022-04-01] MEDS ORDERED: P-EPHED 60MG/TRIPROLIDI 2.5MG TABLET PO PRN (20:42)
[2022-04-01] MEDS ORDERED: ACETAMINOPHEN 325 MG TABLET (FP) PO PRN ×2 (20:42)
[2022-04-01] MEDS ORDERED: ONDANSETRON *ODT* 4 MG TABLET SL PRN (20:42)
[2022-04-01] MEDS ORDERED: BISMUTH SUBSALICYLATE 524 MG/30 ML PO PRN (20:42)
[2022-04-01] MEDS ORDERED: LOPERAMIDE HCL 2 MG CAPSULE PO PRN (20:42)
[2022-04-01] MEDS ORDERED: hydrOXYzine PAMOATE 25 MG CAPSULE (FP) PO PRN (20:42)
[2022-04-01] MEDS ORDERED: IBUPROFEN 400 MG TABLET (FP) PO PRN (20:42)
[2022-04-01] MEDS ORDERED: MAG HYDROX/AL HYDROX/SIMETH 30 ML UNIT-DOSE CUP PO PRN (20:42)
[2022-04-01] MEDS ORDERED: MAGNESIUM CITRATE 300 ML BOTTLE PO PRN (20:42)
[2022-04-01] MEDS ORDERED: DICYCLOMINE HCL 10 MG CAPSULE PO PRN (20:42)
[2022-04-01] MEDS ORDERED: MAGNESIUM HYDROX 2400MG/30ML ORAL SUSPENSION 30 ML CUP PO PRN (20:42)
[2022-04-01] MEDS ORDERED: IBUPROFEN 600 MG TABLET (FP) PO PRN (20:42)
[2022-04-01] MEDS ORDERED: chlordiazePOXIDE HCL 25 MG CAPSULE PO PRN (20:46)
[2022-04-02] MEDS: THIAMINE HCL 100 MG TABLET (FP) PO SCH ×2 (00:54→22:39)
[2022-04-02] MEDS: propRANOLol HCL 10 MG TABLET PO SCH ×4 (00:54→22:39)
[2022-04-02] MEDS: chlordiazePOXIDE HCL 25 MG CAPSULE PO SCH ×5 (00:55→22:39)
[2022-04-02] MEDS: METHOCARBAMOL 500 MG TABLET PO PRN (10:27)
[2022-04-02] MEDS: PRENATAL VITAMINS W/ FOLIC ACID TABLET (FP) PO SCH (10:27)
[2022-04-02] MEDS: NICOTINE 7 MG/24 HOURS TOPICAL PATCH TD PRN (10:27)
[2022-04-02 12:44] LABS: HEMATOCRIT 36.6 % (35.4-49); MCH 32.2 pg (25.7-33.7); MCHC 32.8 g/dl (32.0-35.9); MEAN PLT VOLUME 8.7 fl (7.5-11.1); PLATELET COUNT 249 10^3/uL (134-434); RBC 3.73 M/mm3 (4.00-5.60); RDW 13.7 % (11.9-15.9); WHITE BLOOD COUNT 6.3 K/mm3 (4.0-10.0)
[2022-04-02 12:51] LABS: BLOOD UREA NITROGEN 14.8 mg/dL (7-18); CREATININE 0.8 mg/dL (0.55-1.3)
[2022-04-02 12:52] LABS: CALCIUM 8.9 mg/dL (8.5-10.1)
[2022-04-02 12:53] LABS: BILIRUBIN,TOTAL 0.4 mg/dL (0.2-1); TOT PROT 6.7 g/dl (6.4-8.2)
[2022-04-02] MEDS ORDERED: POTASSIUM CHLORIDE TABS 20 MEQ TABLET.ER (FP) PO ONE (14:45)
[2022-04-02] MEDS: MIRTAZAPINE 15 MG TABLET (FP) PO SCH (22:39)
[2022-04-03] MEDS ORDERED: chlordiazePOXIDE HCL 25 MG CAPSULE PO SCH (05:00)
[2022-04-03] MEDS: propRANOLol HCL 10 MG TABLET PO SCH ×3 (05:31→22:21)
[2022-04-03] MEDS: chlordiazePOXIDE HCL 10 MG CAPSULE PO SCH ×2 (05:31→10:36)
[2022-04-03] MEDS: PRENATAL VITAMINS W/ FOLIC ACID TABLET (FP) PO SCH (10:36)
[2022-04-03] MEDS ORDERED: LORazepam 0.5 MG TABLET PO PRN (12:32)
[2022-04-03 14:03] LABS: HIV INTERPRETATION NEGATIVE (NEGATIVE)
[2022-04-03] MEDS: LORazepam 1 MG TABLET PO SCH ×2 (17:32→22:23)
[2022-04-03] MEDS: METHOCARBAMOL 500 MG TABLET PO PRN (22:17)
[2022-04-03] MEDS: THIAMINE HCL 100 MG TABLET (FP) PO SCH (22:22)
[2022-04-03] MEDS: MIRTAZAPINE 15 MG TABLET (FP) PO SCH (22:22)
[2022-04-04] MEDS ORDERED: chlordiazePOXIDE HCL 10 MG CAPSULE PO PRN
[2022-04-04] MEDS ORDERED: chlordiazePOXIDE HCL 10 MG CAPSULE PO SCH (05:00)
[2022-04-04] MEDS: LORazepam 0.5 MG TABLET PO SCH ×4 (06:21→22:17)
[2022-04-04] MEDS: propRANOLol HCL 10 MG TABLET PO SCH ×3 (06:21→22:17)
[2022-04-04] MEDS: PRENATAL VITAMINS W/ FOLIC ACID TABLET (FP) PO SCH (10:26)
[2022-04-04] MEDS: NICOTINE 7 MG/24 HOURS TOPICAL PATCH TD PRN (10:27)
[2022-04-04 13:15] VITALS: RESP 18
[2022-04-04] MEDS: NICOTINE POLACRILEX 2 MG GUM BUC PRN ×2 (13:50→17:26)
[2022-04-04] MEDS: METHOCARBAMOL 500 MG TABLET PO PRN (17:26)
[2022-04-04] MEDS: THIAMINE HCL 100 MG TABLET (FP) PO SCH (22:17)
[2022-04-04] MEDS: MIRTAZAPINE 15 MG TABLET (FP) PO SCH (22:17)
[2022-04-05] MEDS ORDERED: chlordiazePOXIDE HCL 10 MG CAPSULE PO ONE (05:00)
[2022-04-05] MEDS ORDERED: LORazepam 0.5 MG TABLET PO ONE (05:00)
[2022-04-05] MEDS: propRANOLol HCL 10 MG TABLET PO SCH (05:33)
[2022-04-05 10:02] VITALS: BP 146/89; PULSE 59; TEMP 97.3
[2022-04-05] MEDS: PRENATAL VITAMINS W/ FOLIC ACID TABLET (FP) PO SCH (10:50)
== END 2022-04-05 10:10 | disposition home or self-care (01) | DRG 775 ==
LOC: YASAS 18:17 → Y3N 23:22
PROVIDERS: ADMIT Allergy & Immunology; ATTEND Surgery
PROC: HZ2ZZZZ Detoxification Services for Substance Abuse Treatment (ICD-10-PCS; principal; 2022-04-01)
DX: F10.230 Alcohol dependence with withdrawal, uncomplicated (principal); F12.20 Cannabis dependence, uncomplicated; F17.210 Nicotine dependence, cigarettes, uncomplicated; F41.9 Anxiety disorder, unspecified; E87.6 Hypokalemia; E78.5 Hyperlipidemia, unspecified; R74.8 Abnormal levels of other serum enzymes
CPT/HCPCS: 36415; 80053; 84132; 85027; 86780; 87389; 87811; C9803-CS; U0003; U0005

== ENCOUNTER 2022-07-12 18:54 | Observation (INO) | payer OTHER ==
[2022-07-12 19:02] VITALS: RESP 18
[2022-07-12] MEDS ORDERED: SODIUM CHLORIDE 0.9% 500 ML INFUS.BAG IV ONE (20:14)
[2022-07-12 21:25] LABS: BASO % 0.8 % (0-2.0); EOS % 0.7 % (0-4.5); HEMATOCRIT 47.2 % (35.4-49); LYMPH % 39.2 % (8-40); MCH 30.5 pg (25.7-33.7); MCHC 33.8 g/dl (32.0-35.9); MEAN CELL VOLUME 90.3 fl (80-96); MEAN PLT VOLUME 8.4 fl (7.5-11.1); MONO % 9.1 % (3.8-10.2); NEUT % 50.2 % (42.8-82.8); PLATELET COUNT 201 10^3/uL (134-434); RBC 5.23 M/mm3 (4.00-5.60); RDW 15.7 % (11.9-15.9); WHITE BLOOD COUNT 9.8 K/mm3 (4.0-10.0)
[2022-07-12 22:05] LABS: CALCIUM 9.4 mg/dL (8.5-10.1)
[2022-07-12 22:06] LABS: ALBUMIN 4.3 g/dl (3.4-5.0); BLOOD UREA NITROGEN 12.6 mg/dL (7-18)
[2022-07-12 22:09] LABS: CREATININE 0.9 mg/dL (0.55-1.3)
[2022-07-12] MEDS ORDERED: chlordiazePOXIDE HCL 25 MG CAPSULE PO ONE (22:32)
[2022-07-12] MEDS ORDERED: LORazepam 2 MG/ML SDV VIAL IVPUSH ONE (22:49)
[2022-07-12] MEDS ORDERED: chlordiazePOXIDE HCL 25 MG CAPSULE ONE (23:07)
[2022-07-12 23:21] LABS: BILIRUBIN,TOTAL 0.4 mg/dL (0.2-1)
[2022-07-13] MEDS ORDERED: SODIUM CHLORIDE 1,000 ML IV SCH (02:30)
[2022-07-13] MEDS ORDERED: LORazepam 1 MG TABLET PO PRN (03:50)
[2022-07-13] MEDS ORDERED: LORazepam 1 MG TABLET PO SCH (05:00)
[2022-07-13] MEDS ORDERED: NICOTINE 21 MG/24 HOURS TOPICAL PATCH TD SCH (10:00)
[2022-07-13] MEDS ORDERED: ENOXAPARIN NA (PORCINE) 40 MG/0.4 ML DISP.SYRIN SQ SCH (10:00)
[2022-07-13] MEDS: propRANOLol HCL 10 MG TABLET PO SCH ×3 (10:33→16:07)
[2022-07-13] MEDS ORDERED: propRANOLol HCL 10 MG TABLET ONE ×2 (10:36→16:06)
[2022-07-13] MEDS ORDERED: ENOXAPARIN NA (PORCINE) 40 MG/0.4 ML DISP.SYRIN SQ ONE (10:36)
[2022-07-13] MEDS ORDERED: THIAMINE HCL 200 MG/2 ML VIAL ONE (11:34)
[2022-07-13] MEDS ORDERED: LORazepam 2 MG/ML SDV VIAL IVPUSH ONE (12:00)
[2022-07-13 12:48] LABS: COCAINE, UR NEGATIVE (NEGATIVE); OPIATES, URI NEGATIVE (NEGATIVE); URINE AMPHETAMINES NEGATIVE (NEGATIVE); URINE BARBITURATES NEGATIVE (NEGATIVE)
[2022-07-13 12:49] LABS: METHADONE, UR NEGATIVE (NEGATIVE); PHENCYCLIDINE,URINE NEGATIVE (NEGATIVE)
[2022-07-13 12:52] LABS: URINE BENZODIAZEPINES POSITIVE (NEGATIVE)
[2022-07-13] MEDS ORDERED: LORazepam 2 MG/ML SDV VIAL IVPUSH SCH (13:45)
[2022-07-13] MEDS ORDERED: FLU VACC QS2022-23(6MOS UP)/PF 60 MCG/0.5 ML SYRINGE IM ONE (14:00)
[2022-07-13] MEDS ORDERED: PNEUMOC 20-VAL CONJ-DIP CRM/PF 0.5 ML SYRINGE IM ONE (15:00)
[2022-07-13] MEDS ORDERED: LORazepam 2 MG/ML SDV VIAL IVPUSH PRN (15:46)
[2022-07-13 16:04] VITALS: BP 161/97; PULSE 86
[2022-07-13 16:50] VITALS: TEMP 97.3; BMI 22.3
[2022-07-13] MEDS ORDERED: MIRTAZAPINE 15 MG TABLET (FP) PO SCH (22:00)
[2022-07-14] MEDS ORDERED: LORazepam 1 MG TABLET PO SCH (05:00)
[2022-07-14] MEDS ORDERED: THIAMINE HCL 100 MG TABLET (FP) PO SCH (10:00)
[2022-07-14] MEDS ORDERED: FOLIC ACID 1 MG TABLET (FP) PO SCH (10:00)
[2022-07-14] MEDS ORDERED: THIAMINE HCL 200 MG/2 ML VIAL IVPB SCH (10:00)
[2022-07-15] MEDS ORDERED: LORazepam 0.5 MG TABLET PO PRN
[2022-07-15] MEDS ORDERED: LORazepam 0.5 MG TABLET PO SCH (05:00)
[2022-07-16] MEDS ORDERED: LORazepam 0.5 MG TABLET PO ONE (05:00)
== END 2022-07-13 17:00 | disposition other institution (70) ==
LOC: JER 18:54 → INTOOBSV 07-13 00:12 → JERBED 07-13 00:12
PROVIDERS: ADMIT Internal Medicine; ATTEND Internal Medicine
PROC: 3E023GC Introduction of Other Therapeutic Substance into Muscle, Percutaneous Approach (ICD-10-PCS; principal; 2022-07-13)
PROC: 3E033NZ Introduction of Analgesics, Hypnotics, Sedatives into Peripheral Vein, Percutaneous Approach (ICD-10-PCS; 2022-07-13)
PROC: 3E0337Z Introduction of Electrolytic and Water Balance Substance into Peripheral Vein, Percutaneous Approach (ICD-10-PCS; 2022-07-13)
DX: F10.239 Alcohol dependence with withdrawal, unspecified (principal); F12.10 Cannabis abuse, uncomplicated; F41.9 Anxiety disorder, unspecified; N20.0 Calculus of kidney
CPT/HCPCS: 36415; 70450-TC; 71045-TC-FY; 72125-TC; 80053; 80307; 83690; 85025; 86709; 87517; 93005; 93010; 96361; 96372; 96374; 96375; 99285-25; C9803-CS; G0378; U0003; U0005

== ENCOUNTER 2022-08-25 03:32 | Inpatient (IN) | payer OTHER ==
[2022-08-25 03:52] VITALS: BMI 23.7
[2022-08-25] MEDS ORDERED: MIDAZOLAM HCL 2 MG/2 ML SINGLE DOSE VIAL IVPUSH ONE (04:23)
[2022-08-25] MEDS ORDERED: FOLIC ACID INJECTION - 1 MG, THIAMINE HCL 100 MG, MULTIVIT INJECTION ADULT 10 ML in SOD... IVPB ONE (04:23)
[2022-08-25] MEDS ORDERED: MIDAZOLAM HCL 2 MG/2 ML SINGLE DOSE VIAL ONE (04:49)
[2022-08-25 05:43] LABS: BASO % 0.7 % (0-2.0); EOS % 0.2 % (0-4.5); HEMATOCRIT 42.5 % (35.4-49); HEMOGLOBIN 14.6 GM/dL (11.7-16.9); LYMPH % 6.4 % (8-40); MCH 32.4 pg (25.7-33.7); MCHC 34.3 g/dl (32.0-35.9); MEAN CELL VOLUME 94.5 fl (80-96); MEAN PLT VOLUME 8.3 fl (7.5-11.1); MONO % 8.1 % (3.8-10.2); NEUT % 84.6 % (42.8-82.8); PLATELET COUNT 119 10^3/uL (134-434); RDW 16.4 % (11.9-15.9); WHITE BLOOD COUNT 8.6 K/mm3 (4.0-10.0)
[2022-08-25 05:46] LABS: EPI CELLS 20 /uL (0-25.1); HYALINE CASTS 3 /uL (0-3.1); PH,URINE 6.5 (5.0-8.0); URINE APPEARANCE CLOUDY; URINE BACTERIA 54 /uL (0-1359); URINE BILIRUBIN NEGATIVE (NEGATIVE); URINE COLOR YELLOW; URINE GLUCOSE (UA) NEGATIVE (NEGATIVE); URINE KETONE 1+ (NEGATIVE); URINE LEUK ESTERASE NEGATIVE (NEGATIVE); URINE NITRITE NEGATIVE (NEGATIVE); URINE PROTEIN 2+ (NEGATIVE)
[2022-08-25 05:58] LABS: INR 0.92 (0.83-1.09); PROTHROMBIN TIME (PATIENT) 10.6 SEC (9.7-13.0)
[2022-08-25 06:01] LABS: ACTIVATED PTT 25.1 SECONDS (25.2-36.5); CALCIUM 10.1 mg/dL (8.5-10.1)
[2022-08-25 06:03] LABS: ALBUMIN 4.2 g/dl (3.4-5.0); BLOOD UREA NITROGEN 12.3 mg/dL (7-18); MAGNESIUM 1.2 mg/dL (1.8-2.4)
[2022-08-25 06:07] LABS: BILIRUBIN,TOTAL 1.2 mg/dL (0.2-1); TOT PROT 7.4 g/dl (6.4-8.2)
[2022-08-25 06:08] LABS: LACTIC ACID 3.6 mmol/L (0.4-2.0)
[2022-08-25] MEDS ORDERED: LACTATED RINGERS SOLUTION 1000 ML INFUS.BAG IV ONE (06:09)
[2022-08-25] MEDS ORDERED: MAGNESIUM SULF 50% (8.12 MEQ/2 ML-1 GM VIAL) IVPB ONE (06:12)
[2022-08-25] MEDS ORDERED: POTASSIUM CHLORIDE TABS 20 MEQ TABLET.ER (FP) PO ONE ×4 (06:12→19:52)
[2022-08-25] MEDS ORDERED: MAGNESIUM SULFATE IN WATER 2 GM/50 ML IVPB IVPB ONE (06:22)
[2022-08-25] MEDS ORDERED: LORazepam 2 MG/ML SDV VIAL IVPUSH ONE ×2 (08:22→08:30)
[2022-08-25 08:28] LABS: URINE RBC 36 /uL (0-23.9); URINE WBC 73 /uL (0-25.8)
[2022-08-25] MEDS ORDERED: diazePAM CARPU-JECT 10 MG/2 ML DISP.SYRIN IVPUSH ONE ×2 (09:55→10:25)
[2022-08-25] MEDS ORDERED: diazePAM CARPU-JECT 10 MG/2 ML DISP.SYRIN ONE ×2 (09:58→10:38)
[2022-08-25] MEDS ORDERED: LACTATED RINGERS SOLUTION 1,000 ML/1,000 ML INFUS.BAG IV SCH (12:00)
[2022-08-25] MEDS ORDERED: THIAMINE HCL 200 MG/2 ML VIAL IVPB ONE (12:45)
[2022-08-25] MEDS ORDERED: METOPROLOL TARTRATE 5 MG/5 ML VIAL IVPUSH PRN (12:50)
[2022-08-25] MEDS ORDERED: chlordiazePOXIDE HCL 25 MG CAPSULE PO PRN (12:56)
[2022-08-25] MEDS ORDERED: levETIRAcetam 500 MG/5 ML INJECTION VIAL IVPB ONE (13:20)
[2022-08-25] MEDS ORDERED: FOLIC ACID 1 MG TABLET (FP) ONE (13:20)
[2022-08-25] MEDS ORDERED: THIAMINE HCL 200 MG/2 ML VIAL ONE ×2 (13:20→19:36)
[2022-08-25] MEDS ORDERED: amLODIPine BESYLATE 5 MG TABLET (FP) ONE (13:20)
[2022-08-25] MEDS ORDERED: MULTIVITAMINS (DAILY MVI) TABLET (FP) ONE (13:20)
[2022-08-25] MEDS ORDERED: PANTOPRAZOLE SODIUM 40 MG/100 ML BAG IVPB ONE (13:21)
[2022-08-25] MEDS: FOLIC ACID 1 MG TABLET (FP) PO SCH (13:23)
[2022-08-25] MEDS: MULTIVITAMINS (DAILY MVI) TABLET (FP) PO SCH (13:24)
[2022-08-25] MEDS: amLODIPine BESYLATE 5 MG TABLET (FP) PO SCH (13:24)
[2022-08-25] MEDS: PANTOPRAZOLE SODIUM 40 MG VIAL IVPUSH SCH (13:33)
[2022-08-25] MEDS: levETIRAcetam 500 MG/5 ML INJECTION VIAL IVPB SCH (13:33)
[2022-08-25 13:40] LABS: COCAINE, UR NEGATIVE (NEGATIVE); PHENCYCLIDINE,URINE NEGATIVE (NEGATIVE)
[2022-08-25 13:42] LABS: CALCIUM 8.9 mg/dL (8.5-10.1)
[2022-08-25 13:43] LABS: ALBUMIN 3.6 g/dl (3.4-5.0); BLOOD UREA NITROGEN 7.4 mg/dL (7-18); MAGNESIUM 1.7 mg/dL (1.8-2.4)
[2022-08-25 13:45] LABS: METHADONE, UR NEGATIVE (NEGATIVE); OPIATES, URI NEGATIVE (NEGATIVE); URINE AMPHETAMINES NEGATIVE (NEGATIVE); URINE BARBITURATES NEGATIVE (NEGATIVE); URINE BENZODIAZEPINES POSITIVE (NEGATIVE)
[2022-08-25 13:46] LABS: CREATININE 0.6 mg/dL (0.55-1.3); PHOSPHOROUS 2.6 mg/dL (2.5-4.9)
[2022-08-25 13:48] LABS: TOT PROT 6.6 g/dl (6.4-8.2)
[2022-08-25] MEDS: D5-1/2NS+20 MEQ KCL - 20 MEQ/1,000 ML INFUS.BAG IV SCH ×2 (14:28→22:25)
[2022-08-25] MEDS ORDERED: chlordiazePOXIDE HCL 25 MG CAPSULE ONE (18:07)
[2022-08-25] MEDS: chlordiazePOXIDE HCL 25 MG CAPSULE PO SCH (18:08)
[2022-08-25] MEDS: THIAMINE HCL 200 MG/2 ML VIAL IVPB SCH (19:50)
[2022-08-26] MEDS ORDERED: THIAMINE HCL 200 MG/2 ML VIAL ONE ×3 (01:22→20:28)
[2022-08-26] MEDS ORDERED: levETIRAcetam 500 MG/5 ML INJECTION VIAL IVPB ONE ×2 (01:23→09:57)
[2022-08-26] MEDS ORDERED: HEPARIN NA (PORCINE) 5,000 UNITS/ML 1ML VIAL ONE ×2 (01:23→09:57)
[2022-08-26] MEDS ORDERED: chlordiazePOXIDE HCL 25 MG CAPSULE ONE ×3 (01:23→20:29)
[2022-08-26] MEDS: HEPARIN NA (PORCINE) 5,000 UNITS/ML 1ML VIAL SQ SCH ×3 (01:33→22:28)
[2022-08-26] MEDS: levETIRAcetam 500 MG/5 ML INJECTION VIAL IVPB SCH ×3 (01:34→22:28)
[2022-08-26] MEDS: chlordiazePOXIDE HCL 25 MG CAPSULE PO SCH ×3 (01:35→20:34)
[2022-08-26] MEDS: THIAMINE HCL 200 MG/2 ML VIAL IVPB SCH ×3 (03:51→20:34)
[2022-08-26 07:39] LABS: BASO % 0.4 % (0-2.0); EOS % 0.4 % (0-4.5); HEMATOCRIT 44.9 % (35.4-49); HEMOGLOBIN 15.3 GM/dL (11.7-16.9); LYMPH % 15.3 % (8-40); MCH 32.6 pg (25.7-33.7); MCHC 34.2 g/dl (32.0-35.9); MEAN CELL VOLUME 95.5 fl (80-96); MEAN PLT VOLUME 8.2 fl (7.5-11.1); MONO % 11.3 % (3.8-10.2); NEUT % 72.6 % (42.8-82.8); PLATELET COUNT 119 10^3/uL (134-434); RDW 15.5 % (11.9-15.9); WHITE BLOOD COUNT 7.9 K/mm3 (4.0-10.0)
[2022-08-26 08:07] LABS: ALBUMIN 4.2 g/dl (3.4-5.0); BLOOD UREA NITROGEN 4.2 mg/dL (7-18); CALCIUM 8.9 mg/dL (8.5-10.1)
[2022-08-26 08:11] LABS: BILIRUBIN,TOTAL 1.1 mg/dL (0.2-1); CREATININE 0.8 mg/dL (0.55-1.3); TOT PROT 7.7 g/dl (6.4-8.2)
[2022-08-26] MEDS ORDERED: FOLIC ACID 1 MG TABLET (FP) ONE (09:57)
[2022-08-26] MEDS ORDERED: amLODIPine BESYLATE 5 MG TABLET (FP) ONE (09:57)
[2022-08-26] MEDS ORDERED: PANTOPRAZOLE SODIUM 40 MG VIAL ONE (09:57)
[2022-08-26] MEDS ORDERED: MULTIVITAMINS (DAILY MVI) TABLET (FP) ONE (09:57)
[2022-08-26] MEDS ORDERED: THIAMINE HCL 200 MG/2 ML VIAL IVPB SCH (10:00)
[2022-08-26] MEDS: FOLIC ACID 1 MG TABLET (FP) PO SCH (10:10)
[2022-08-26] MEDS: amLODIPine BESYLATE 5 MG TABLET (FP) PO SCH (10:10)
[2022-08-26] MEDS: PANTOPRAZOLE SODIUM 40 MG VIAL IVPUSH SCH (10:10)
[2022-08-26] MEDS: MULTIVITAMINS (DAILY MVI) TABLET (FP) PO SCH (10:10)
[2022-08-26] MEDS: D5-1/2NS+20 MEQ KCL - 20 MEQ/1,000 ML INFUS.BAG IV SCH (15:42)
[2022-08-26 20:26] VITALS: RESP 18
[2022-08-27 00:49] VITALS: BP 153/92; PULSE 93; TEMP 98.4
== END 2022-08-27 00:35 | disposition left against medical advice (07) | DRG 770 ==
LOC: JER 03:32 → JERBED 13:06 → J4S 08-26 20:45
PROVIDERS: ADMIT Family Medicine; ATTEND Family Medicine
PROC: HZ2ZZZZ Detoxification Services for Substance Abuse Treatment (ICD-10-PCS; principal; 2022-08-25)
DX: F10.239 Alcohol dependence with withdrawal, unspecified (principal); D69.6 Thrombocytopenia, unspecified; K76.0 Fatty (change of) liver, not elsewhere classified; R56.9 Unspecified convulsions; E78.5 Hyperlipidemia, unspecified; F17.210 Nicotine dependence, cigarettes, uncomplicated; I10 Essential (primary) hypertension; F41.8 Other specified anxiety disorders
CPT/HCPCS: 0241U-QW; 36415; 70450-TC; 71045-TC-FY; 72125-TC; 76705-TC; 80048; 80053; 80061; 80307; 81003; 82550; 82553; 82962; 83036; 83605; 83690; 83735; 84100; 84443; 84484; 85025; 85610; 85730; 87086; 87340; 87522; 93005; 93010; 99285-25; J1644

== ENCOUNTER 2022-12-24 16:47 | Inpatient (IN) | payer OTHER ==
[2022-12-24 17:09] VITALS: BMI 27.3
[2022-12-24] MEDS ORDERED: chlordiazePOXIDE HCL 25 MG CAPSULE PO PRN (17:34)
[2022-12-24] MEDS ORDERED: chlordiazePOXIDE HCL 25 MG CAPSULE PO ONE (17:34)
[2022-12-24] MEDS ORDERED: BENZOCAINE/MENTHOL (CHLORASEPTIC ) LOZENGE MM PRN (17:35)
[2022-12-24] MEDS ORDERED: ONDANSETRON *ODT* 4 MG TABLET SL PRN (17:35)
[2022-12-24] MEDS ORDERED: BENZONATATE 200 MG CAPSULE PO PRN (17:35)
[2022-12-24] MEDS ORDERED: IBUPROFEN 400 MG TABLET (FP) PO PRN (17:35)
[2022-12-24] MEDS ORDERED: P-EPHED 60MG/TRIPROLIDI 2.5MG TABLET PO PRN (17:35)
[2022-12-24] MEDS ORDERED: NALOXONE HCL (KLOXXADO) 8 MG SPRAY NS PRN (17:35)
[2022-12-24] MEDS ORDERED: IBUPROFEN 600 MG TABLET (FP) PO PRN (17:35)
[2022-12-24] MEDS ORDERED: MAG HYDROX/AL HYDROX/SIMETH 30 ML UNIT-DOSE CUP PO PRN (17:35)
[2022-12-24] MEDS ORDERED: DICYCLOMINE HCL 10 MG CAPSULE PO PRN (17:35)
[2022-12-24] MEDS ORDERED: LOPERAMIDE HCL 2 MG CAPSULE PO PRN (17:35)
[2022-12-24] MEDS ORDERED: NALOXONE HCL 0.4 MG/ML VIAL IM PRN (17:35)
[2022-12-24] MEDS ORDERED: BISMUTH SUBSALICYLATE 524 MG/30 ML PO PRN (17:35)
[2022-12-24] MEDS ORDERED: ACETAMINOPHEN 325 MG TABLET (FP) PO PRN (17:35)
[2022-12-24] MEDS ORDERED: POLYETHYLENE GLYCOL (HEALTHYLAX) 3350 17 GM PACKET PO PRN (17:35)
[2022-12-24] MEDS ORDERED: guaiFENesin 600 MG TABLET.ER (FP) PO PRN (17:35)
[2022-12-24] MEDS ORDERED: MAGNESIUM HYDROX 2400MG/30ML ORAL SUSPENSION 30 ML CUP PO PRN (17:35)
[2022-12-24] MEDS ORDERED: NICOTINE POLACRILEX 2 MG GUM BUC PRN (17:35)
[2022-12-24] MEDS ORDERED: chlordiazePOXIDE HCL 25 MG CAPSULE ONE (18:32)
[2022-12-24] MEDS: THIAMINE HCL 100 MG TABLET (FP) PO SCH (22:17)
[2022-12-24] MEDS: MELATONIN 5 MG TABLETS PO PRN (22:17)
[2022-12-24] MEDS: chlordiazePOXIDE HCL 25 MG CAPSULE PO SCH (22:19)
[2022-12-24] MEDS: BACITRACIN 0.9 GM PACKET TP SCH (22:19)
[2022-12-24] MEDS: hydrOXYzine PAMOATE 25 MG CAPSULE (FP) PO PRN (22:19)
[2022-12-24] MEDS: METHOCARBAMOL 500 MG TABLET PO PRN (22:19)
[2022-12-24] MEDS: propRANOLol HCL 10 MG TABLET PO SCH (22:51)
[2022-12-24] MEDS: SILVER SULFADIAZINE 1% TOP CREAM 400 GM JAR TP SCH (22:51)
[2022-12-25] MEDS: propRANOLol HCL 10 MG TABLET PO SCH ×3 (05:30→22:17)
[2022-12-25] MEDS: chlordiazePOXIDE HCL 25 MG CAPSULE PO SCH ×4 (05:30→22:17)
[2022-12-25] MEDS: PRENATAL VITAMINS W/ FOLIC ACID TABLET (FP) PO SCH (10:11)
[2022-12-25] MEDS: BACITRACIN 0.9 GM PACKET TP SCH ×2 (10:11→22:16)
[2022-12-25] MEDS: FOLIC ACID 1 MG TABLET (FP) PO SCH (10:11)
[2022-12-25] MEDS: NICOTINE 21 MG/24 HOURS TOPICAL PATCH TD SCH (10:11)
[2022-12-25] MEDS: SILVER SULFADIAZINE 1% TOP CREAM 400 GM JAR TP SCH ×2 (10:12→22:18)
[2022-12-25 16:54] LABS: HEMATOCRIT 44.5 % (35.4-49); HEMOGLOBIN 15.7 GM/dL (11.7-16.9); MCHC 35.3 g/dl (32.0-35.9); MEAN CELL VOLUME 90.8 fl (80-96); MEAN PLT VOLUME 9.1 fl (7.5-11.1); PLATELET COUNT 265 10^3/uL (134-434); RDW 13.3 % (11.9-15.9); WHITE BLOOD COUNT 12.2 K/mm3 (4.0-10.0)
[2022-12-25 16:55] LABS: POTASSIUM 4.5 mmol/L (3.5-5.1)
[2022-12-25 16:58] LABS: CALCIUM 10.2 mg/dL (8.5-10.1)
[2022-12-25 16:59] LABS: ALBUMIN 4.1 g/dl (3.4-5.0)
[2022-12-25 17:02] LABS: CREATININE 0.9 mg/dL (0.55-1.3)
[2022-12-25 17:03] LABS: BILIRUBIN,TOTAL 0.7 mg/dL (0.2-1); TOT PROT 7.4 g/dl (6.4-8.2)
[2022-12-25] MEDS: cloNIDine HCL 0.1 MG TABLET PO PRN (17:38)
[2022-12-25] MEDS: THIAMINE HCL 100 MG TABLET (FP) PO SCH (22:17)
[2022-12-25] MEDS: MELATONIN 5 MG TABLETS PO PRN (22:17)
[2022-12-25] MEDS: MIRTAZAPINE 15 MG TABLET (FP) PO SCH (22:17)
[2022-12-26] MEDS: chlordiazePOXIDE HCL 25 MG CAPSULE PO SCH ×4 (05:41→22:15)
[2022-12-26] MEDS: propRANOLol HCL 10 MG TABLET PO SCH ×3 (05:42→22:15)
[2022-12-26] MEDS: BACITRACIN 0.9 GM PACKET TP SCH ×2 (10:08→22:14)
[2022-12-26] MEDS: FOLIC ACID 1 MG TABLET (FP) PO SCH (10:08)
[2022-12-26] MEDS: SILVER SULFADIAZINE 1% TOP CREAM 400 GM JAR TP SCH ×2 (10:09→22:15)
[2022-12-26] MEDS: PRENATAL VITAMINS W/ FOLIC ACID TABLET (FP) PO SCH (10:09)
[2022-12-26] MEDS: NICOTINE 21 MG/24 HOURS TOPICAL PATCH TD SCH (10:09)
[2022-12-26] MEDS: hydrOXYzine PAMOATE 25 MG CAPSULE (FP) PO PRN (13:22)
[2022-12-26] MEDS: cloNIDine HCL 0.1 MG TABLET PO PRN (17:37)
[2022-12-26] MEDS: THIAMINE HCL 100 MG TABLET (FP) PO SCH (22:15)
[2022-12-26] MEDS: MIRTAZAPINE 15 MG TABLET (FP) PO SCH (22:15)
[2022-12-27] MEDS ORDERED: chlordiazePOXIDE HCL 10 MG CAPSULE PO PRN
[2022-12-27] MEDS: chlordiazePOXIDE HCL 10 MG CAPSULE PO SCH ×4 (05:50→22:03)
[2022-12-27] MEDS: propRANOLol HCL 10 MG TABLET PO SCH ×3 (05:51→22:02)
[2022-12-27] MEDS: BACITRACIN 0.9 GM PACKET TP SCH ×2 (10:22→22:02)
[2022-12-27] MEDS: FOLIC ACID 1 MG TABLET (FP) PO SCH (10:22)
[2022-12-27] MEDS: SILVER SULFADIAZINE 1% TOP CREAM 400 GM JAR TP SCH ×2 (10:23→22:03)
[2022-12-27] MEDS: PRENATAL VITAMINS W/ FOLIC ACID TABLET (FP) PO SCH (10:23)
[2022-12-27] MEDS: NICOTINE 21 MG/24 HOURS TOPICAL PATCH TD SCH (10:23)
[2022-12-27 15:13] VITALS: RESP 18
[2022-12-27] MEDS: cloNIDine HCL 0.1 MG TABLET PO PRN (18:05)
[2022-12-27] MEDS: THIAMINE HCL 100 MG TABLET (FP) PO SCH (22:03)
[2022-12-27] MEDS: MIRTAZAPINE 15 MG TABLET (FP) PO SCH (22:03)
[2022-12-28] MEDS: chlordiazePOXIDE HCL 10 MG CAPSULE PO SCH ×2 (05:49→17:30)
[2022-12-28] MEDS: propRANOLol HCL 10 MG TABLET PO SCH ×3 (05:49→22:12)
[2022-12-28] MEDS: NICOTINE 21 MG/24 HOURS TOPICAL PATCH TD SCH (09:42)
[2022-12-28] MEDS: BACITRACIN 0.9 GM PACKET TP SCH ×2 (09:42→22:11)
[2022-12-28] MEDS: FOLIC ACID 1 MG TABLET (FP) PO SCH (09:42)
[2022-12-28] MEDS: PRENATAL VITAMINS W/ FOLIC ACID TABLET (FP) PO SCH (09:42)
[2022-12-28] MEDS: SILVER SULFADIAZINE 1% TOP CREAM 400 GM JAR TP SCH ×2 (09:42→22:11)
[2022-12-28] MEDS: THIAMINE HCL 100 MG TABLET (FP) PO SCH (22:12)
[2022-12-28] MEDS: METHOCARBAMOL 500 MG TABLET PO PRN (22:12)
[2022-12-28] MEDS: MIRTAZAPINE 15 MG TABLET (FP) PO SCH (22:13)
[2022-12-29] MEDS ORDERED: chlordiazePOXIDE HCL 10 MG CAPSULE PO ONE (05:00)
[2022-12-29] MEDS: propRANOLol HCL 10 MG TABLET PO SCH (05:39)
[2022-12-29 06:34] VITALS: BP 112/76; PULSE 61; TEMP 97.5
[2022-12-29] MEDS: SILVER SULFADIAZINE 1% TOP CREAM 400 GM JAR TP SCH (10:02)
[2022-12-29] MEDS: NICOTINE 21 MG/24 HOURS TOPICAL PATCH TD SCH (10:02)
[2022-12-29] MEDS: FOLIC ACID 1 MG TABLET (FP) PO SCH (10:02)
[2022-12-29] MEDS: PRENATAL VITAMINS W/ FOLIC ACID TABLET (FP) PO SCH (10:02)
[2022-12-29] MEDS: BACITRACIN 0.9 GM PACKET TP SCH (10:02)
== END 2022-12-29 10:14 | disposition home or self-care (01) | DRG 775 ==
LOC: YASAS 16:47 → Y3N 17:50
PROVIDERS: ADMIT Allergy & Immunology; ATTEND Surgery
PROC: HZ2ZZZZ Detoxification Services for Substance Abuse Treatment (ICD-10-PCS; principal; 2022-12-24)
DX: F10.230 Alcohol dependence with withdrawal, uncomplicated (principal); F17.210 Nicotine dependence, cigarettes, uncomplicated; F41.9 Anxiety disorder, unspecified; G47.00 Insomnia, unspecified; E78.5 Hyperlipidemia, unspecified; I10 Essential (primary) hypertension; Z91.410 Personal history of adult physical and sexual abuse
CPT/HCPCS: 36415; 80053; 85027; 86780; 87811; C9803-CS; U0003; U0005

== ENCOUNTER 2023-01-08 23:15 | Inpatient (IN) | payer OTHER ==
[2023-01-09 00:01] VITALS: BMI 25.1
[2023-01-09] MEDS ORDERED: NALOXONE HCL (KLOXXADO) 8 MG SPRAY NS PRN (03:57)
[2023-01-09] MEDS ORDERED: ONDANSETRON *ODT* 4 MG TABLET SL PRN (03:57)
[2023-01-09] MEDS ORDERED: IBUPROFEN 600 MG TABLET (FP) PO PRN (03:57)
[2023-01-09] MEDS ORDERED: ACETAMINOPHEN 325 MG TABLET (FP) PO PRN (03:57)
[2023-01-09] MEDS ORDERED: guaiFENesin 600 MG TABLET.ER (FP) PO PRN (03:57)
[2023-01-09] MEDS ORDERED: BENZONATATE 200 MG CAPSULE PO PRN (03:57)
[2023-01-09] MEDS ORDERED: chlordiazePOXIDE HCL 25 MG CAPSULE PO PRN (03:57)
[2023-01-09] MEDS ORDERED: IBUPROFEN 400 MG TABLET (FP) PO PRN (03:57)
[2023-01-09] MEDS ORDERED: BENZOCAINE/MENTHOL (CHLORASEPTIC ) LOZENGE MM PRN (03:57)
[2023-01-09] MEDS ORDERED: MAGNESIUM HYDROX 2400MG/30ML ORAL SUSPENSION 30 ML CUP PO PRN (03:57)
[2023-01-09] MEDS ORDERED: POLYETHYLENE GLYCOL (HEALTHYLAX) 3350 17 GM PACKET PO PRN (03:57)
[2023-01-09] MEDS ORDERED: MAG HYDROX/AL HYDROX/SIMETH 30 ML UNIT-DOSE CUP PO PRN (03:57)
[2023-01-09] MEDS ORDERED: DICYCLOMINE HCL 10 MG CAPSULE PO PRN (03:57)
[2023-01-09] MEDS ORDERED: NALOXONE HCL 0.4 MG/ML VIAL IM PRN (03:57)
[2023-01-09] MEDS ORDERED: LOPERAMIDE HCL 2 MG CAPSULE PO PRN (03:57)
[2023-01-09] MEDS: chlordiazePOXIDE HCL 25 MG CAPSULE PO SCH ×4 (04:25→22:11)
[2023-01-09] MEDS ORDERED: chlordiazePOXIDE HCL 25 MG CAPSULE ONE (04:25)
[2023-01-09] MEDS: METHOCARBAMOL 500 MG TABLET PO PRN (04:41)
[2023-01-09] MEDS: PRENATAL VITAMINS W/ FOLIC ACID TABLET (FP) PO SCH (10:19)
[2023-01-09] MEDS: NICOTINE 14 MG/24 HOURS TOPICAL PATCH TD SCH (10:21)
[2023-01-09] MEDS ORDERED: PNEUMOC 20-VAL CONJ-DIP CRM/PF 0.5 ML SYRINGE IM ONE (12:00)
[2023-01-09] MEDS: BISMUTH SUBSALICYLATE 524 MG/30 ML PO PRN ×2 (15:50→18:28)
[2023-01-09] MEDS: MELATONIN 5 MG TABLETS PO SCH (22:10)
[2023-01-09] MEDS: MIRTAZAPINE 15 MG TABLET (FP) PO SCH (22:11)
[2023-01-09] MEDS: THIAMINE HCL 100 MG TABLET (FP) PO SCH (22:11)
[2023-01-10] MEDS: propRANOLol HCL 10 MG TABLET PO SCH ×4 (00:43→21:59)
[2023-01-10] MEDS: chlordiazePOXIDE HCL 25 MG CAPSULE PO SCH ×4 (05:46→22:00)
[2023-01-10] MEDS: METHOCARBAMOL 500 MG TABLET PO PRN (05:46)
[2023-01-10] MEDS: PRENATAL VITAMINS W/ FOLIC ACID TABLET (FP) PO SCH (10:08)
[2023-01-10] MEDS: NICOTINE 14 MG/24 HOURS TOPICAL PATCH TD SCH (10:09)
[2023-01-10 11:27] LABS: HEMATOCRIT 49.7 % (35.4-49); HEMOGLOBIN 16.8 GM/dL (11.7-16.9); MCH 31.2 pg (25.7-33.7); MCHC 33.8 g/dl (32.0-35.9); MEAN CELL VOLUME 92.1 fl (80-96); PLATELET COUNT 254 10^3/uL (134-434); POTASSIUM 3.2 mmol/L (3.5-5.1); RDW 13.4 % (11.9-15.9); WHITE BLOOD COUNT 11.9 K/mm3 (4.0-10.0)
[2023-01-10 11:29] LABS: CALCIUM 9.9 mg/dL (8.5-10.1)
[2023-01-10 11:30] LABS: ALBUMIN 4.2 g/dl (3.4-5.0); BLOOD UREA NITROGEN 9.1 mg/dL (7-18)
[2023-01-10 11:33] LABS: CREATININE 0.9 mg/dL (0.55-1.3)
[2023-01-10 11:35] LABS: TOT PROT 7.9 g/dl (6.4-8.2)
[2023-01-10] MEDS ORDERED: POTASSIUM CHLORIDE ORAL LIQUID 20 MEQ/15 ML PO ONE (11:57)
[2023-01-10] MEDS: NICOTINE 10 MG CARTRIDGE (INHALER) IH PRN (12:41)
[2023-01-10 13:03] LABS: HIV INTERPRETATION NEGATIVE (NEGATIVE)
[2023-01-10] MEDS: THIAMINE HCL 100 MG TABLET (FP) PO SCH (21:59)
[2023-01-10] MEDS: MELATONIN 5 MG TABLETS PO SCH (21:59)
[2023-01-10] MEDS: MIRTAZAPINE 15 MG TABLET (FP) PO SCH (21:59)
[2023-01-11] MEDS ORDERED: chlordiazePOXIDE HCL 10 MG CAPSULE PO PRN
[2023-01-11] MEDS: chlordiazePOXIDE HCL 10 MG CAPSULE PO SCH ×4 (05:41→22:26)
[2023-01-11] MEDS: propRANOLol HCL 10 MG TABLET PO SCH ×3 (05:41→22:26)
[2023-01-11] MEDS: NICOTINE 10 MG CARTRIDGE (INHALER) IH PRN (10:07)
[2023-01-11] MEDS: PRENATAL VITAMINS W/ FOLIC ACID TABLET (FP) PO SCH (10:08)
[2023-01-11] MEDS: NICOTINE 14 MG/24 HOURS TOPICAL PATCH TD SCH (10:08)
[2023-01-11 11:55] LABS: HEMATOCRIT 47.2 % (35.4-49); HEMOGLOBIN 16.4 GM/dL (11.7-16.9); MCH 31.5 pg (25.7-33.7); MCHC 34.7 g/dl (32.0-35.9); MEAN CELL VOLUME 90.6 fl (80-96); MEAN PLT VOLUME 8.9 fl (7.5-11.1); PLATELET COUNT 222 10^3/uL (134-434); RDW 13.8 % (11.9-15.9)
[2023-01-11] MEDS: MELATONIN 5 MG TABLETS PO SCH (22:25)
[2023-01-11] MEDS: MIRTAZAPINE 15 MG TABLET (FP) PO SCH (22:25)
[2023-01-11] MEDS: THIAMINE HCL 100 MG TABLET (FP) PO SCH (22:25)
[2023-01-12] MEDS ORDERED: chlordiazePOXIDE HCL 10 MG CAPSULE PO SCH (05:00)
[2023-01-12] MEDS: propRANOLol HCL 10 MG TABLET PO SCH (05:53)
[2023-01-12 09:36] VITALS: BP 138/80; PULSE 63; RESP 16; TEMP 97.7
[2023-01-12] MEDS: PRENATAL VITAMINS W/ FOLIC ACID TABLET (FP) PO SCH (09:51)
[2023-01-12] MEDS: NICOTINE 14 MG/24 HOURS TOPICAL PATCH TD SCH (09:51)
[2023-01-13] MEDS ORDERED: chlordiazePOXIDE HCL 10 MG CAPSULE PO ONE (05:00)
== END 2023-01-12 09:52 | disposition home or self-care (01) | DRG 775 ==
LOC: YASAS 23:15 → Y3N 01-09 04:13
PROVIDERS: ADMIT Allergy & Immunology; ATTEND Surgery
PROC: HZ2ZZZZ Detoxification Services for Substance Abuse Treatment (ICD-10-PCS; principal; 2023-01-09)
DX: F10.230 Alcohol dependence with withdrawal, uncomplicated (principal); F12.20 Cannabis dependence, uncomplicated; F17.210 Nicotine dependence, cigarettes, uncomplicated; F41.9 Anxiety disorder, unspecified; I10 Essential (primary) hypertension; R79.89 Other specified abnormal findings of blood chemistry; Z91.410 Personal history of adult physical and sexual abuse
CPT/HCPCS: 36415; 80053; 84132; 85027; 86780; 87389; 87635

== ENCOUNTER 2023-02-22 10:41 | Emergency (ER) | payer OTHER ==
[2023-02-22 10:49] VITALS: BMI 26.4
[2023-02-22 12:35] LABS: BASO % 0.5 % (0-2.0); EOS % 0.2 % (0-4.5); HEMATOCRIT 37.8 % (35.4-49); HEMOGLOBIN 13.1 GM/dL (11.7-16.9); LYMPH % 13.3 % (8-40); MCH 31.4 pg (25.7-33.7); MCHC 34.5 g/dl (32.0-35.9); MEAN CELL VOLUME 90.9 fl (80-96); MEAN PLT VOLUME 7.8 fl (7.5-11.1); MONO % 7.8 % (3.8-10.2); NEUT % 78.2 % (42.8-82.8); PLATELET COUNT 296 10^3/uL (134-434); RBC 4.16 M/mm3 (4.00-5.60); RDW 13.5 % (11.9-15.9); WHITE BLOOD COUNT 12.5 K/mm3 (4.0-10.0)
[2023-02-22 13:08] LABS: ALBUMIN 3.8 g/dl (3.4-5.0); CALCIUM 9.4 mg/dL (8.5-10.1)
[2023-02-22 13:09] LABS: BLOOD UREA NITROGEN 10.2 mg/dL (7-18)
[2023-02-22 13:12] LABS: CREATININE 0.9 mg/dL (0.55-1.3)
[2023-02-22 13:13] LABS: BILIRUBIN,TOTAL 1.2 mg/dL (0.2-1); TOT PROT 7.2 g/dl (6.4-8.2)
[2023-02-22 17:33] VITALS: TEMP 99.4
[2023-02-22 20:06] VITALS: BP 148/94; PULSE 81; RESP 16
== END 2023-02-22 20:06 | disposition short-term general hospital (02) ==
LOC: JER 10:41
DX: S27.1XXA Traumatic hemothorax, initial encounter (principal); F10.230 Alcohol dependence with withdrawal, uncomplicated; X58.XXXA Exposure to other specified factors, initial encounter
CPT/HCPCS: 36415; 71046-TC-FY; 71260-TC; 74177-TC; 80053; 83605; 85025; 86850; 86900; 86901; 99285-25; Q9967

== ENCOUNTER 2023-04-02 16:31 | Inpatient (IN) | payer OTHER ==
[2023-04-02 17:42] VITALS: BMI 26.3
[2023-04-02] MEDS ORDERED: chlordiazePOXIDE HCL 25 MG CAPSULE PO PRN (17:56)
[2023-04-02] MEDS ORDERED: METHOCARBAMOL 500 MG TABLET PO PRN (18:07)
[2023-04-02] MEDS ORDERED: IBUPROFEN 600 MG TABLET (FP) PO PRN (18:07)
[2023-04-02] MEDS ORDERED: P-EPHED 60MG/TRIPROLIDI 2.5MG TABLET PO PRN (18:07)
[2023-04-02] MEDS ORDERED: MAGNESIUM HYDROX 2400MG/30ML ORAL SUSPENSION 30 ML CUP PO PRN (18:07)
[2023-04-02] MEDS ORDERED: ACETAMINOPHEN 325 MG TABLET (FP) PO PRN (18:07)
[2023-04-02] MEDS ORDERED: BENZONATATE 200 MG CAPSULE PO PRN (18:07)
[2023-04-02] MEDS ORDERED: ONDANSETRON *ODT* 4 MG TABLET SL PRN (18:07)
[2023-04-02] MEDS ORDERED: IBUPROFEN 400 MG TABLET (FP) PO PRN (18:07)
[2023-04-02] MEDS ORDERED: POLYETHYLENE GLYCOL (HEALTHYLAX) 3350 17 GM PACKET PO PRN (18:07)
[2023-04-02] MEDS ORDERED: MAG HYDROX/AL HYDROX/SIMETH 30 ML UNIT-DOSE CUP PO PRN (18:07)
[2023-04-02] MEDS ORDERED: DICYCLOMINE HCL 10 MG CAPSULE PO PRN (18:07)
[2023-04-02] MEDS ORDERED: BENZOCAINE/MENTHOL (CHLORASEPTIC ) LOZENGE MM PRN (18:07)
[2023-04-02] MEDS ORDERED: guaiFENesin 600 MG TABLET.ER (FP) PO PRN (18:07)
[2023-04-02] MEDS ORDERED: hydrOXYzine PAMOATE 25 MG CAPSULE (FP) PO PRN (18:07)
[2023-04-02] MEDS ORDERED: BISMUTH SUBSALICYLATE 524 MG/30 ML PO PRN (18:07)
[2023-04-02] MEDS ORDERED: LOPERAMIDE HCL 2 MG CAPSULE PO PRN (18:07)
[2023-04-02] MEDS: propRANOLol HCL 10 MG TABLET PO SCH (21:00)
[2023-04-02] MEDS ORDERED: MELATONIN 5 MG TABLETS PO SCH (22:00)
[2023-04-02] MEDS ORDERED: THIAMINE HCL 100 MG TABLET (FP) PO SCH (22:00)
[2023-04-02] MEDS: chlordiazePOXIDE HCL 25 MG CAPSULE PO SCH (22:05)
[2023-04-03] MEDS: chlordiazePOXIDE HCL 25 MG CAPSULE PO SCH ×3 (05:29→17:27)
[2023-04-03] MEDS: propRANOLol HCL 10 MG TABLET PO SCH ×2 (05:29→13:06)
[2023-04-03 09:14] VITALS: RESP 18
[2023-04-03] MEDS ORDERED: PRENATAL VITAMINS W/ FOLIC ACID TABLET (FP) PO SCH (10:00)
[2023-04-03] MEDS ORDERED: NICOTINE 14 MG/24 HOURS TOPICAL PATCH TD SCH (10:00)
[2023-04-03 10:28] LABS: POTASSIUM 3.2 mmol/L (3.5-5.1)
[2023-04-03 10:29] LABS: HEMATOCRIT 48.9 % (35.4-49); HEMOGLOBIN 15.9 GM/dL (11.7-16.9); MCH 30.5 pg (25.7-33.7); MCHC 32.6 g/dl (32.0-35.9); MEAN CELL VOLUME 93.6 fl (80-96); MEAN PLT VOLUME 9.5 fl (7.5-11.1); PLATELET COUNT 179 10^3/uL (134-434); RBC 5.22 M/mm3 (4.00-5.60); RDW 14.3 % (11.9-15.9); WHITE BLOOD COUNT 7.9 K/mm3 (4.0-10.0)
[2023-04-03 10:36] LABS: ALBUMIN 4.1 g/dl (3.4-5.0)
[2023-04-03 10:37] LABS: BLOOD UREA NITROGEN 14.1 mg/dL (7-18); CALCIUM 9.8 mg/dL (8.5-10.1)
[2023-04-03 10:40] LABS: BILIRUBIN,TOTAL 0.7 mg/dL (0.2-1); TOT PROT 7.8 g/dl (6.4-8.2)
[2023-04-03] MEDS ORDERED: POTASSIUM CHLORIDE ORAL LIQUID 20 MEQ/15 ML PO ONE (11:15)
[2023-04-03] MEDS ORDERED: PNEUMOC 20-VAL CONJ-DIP CRM/PF 0.5 ML SYRINGE IM ONE (12:00)
[2023-04-03 17:19] VITALS: BP 144/98; PULSE 71; TEMP 96.2
[2023-04-03] MEDS ORDERED: MIRTAZAPINE 15 MG TABLET (FP) PO SCH (22:00)
[2023-04-04] MEDS ORDERED: chlordiazePOXIDE HCL 25 MG CAPSULE PO SCH (05:00)
[2023-04-05] MEDS ORDERED: chlordiazePOXIDE HCL 10 MG CAPSULE PO PRN
[2023-04-05] MEDS ORDERED: chlordiazePOXIDE HCL 10 MG CAPSULE PO SCH (05:00)
[2023-04-06] MEDS ORDERED: chlordiazePOXIDE HCL 10 MG CAPSULE PO SCH (05:00)
[2023-04-07] MEDS ORDERED: chlordiazePOXIDE HCL 10 MG CAPSULE PO ONE (05:00)
== END 2023-04-03 19:13 | disposition left against medical advice (07) | DRG 770 ==
LOC: YASAS 16:31 → Y3N 18:30 → Y6N 04-03 18:10 → Y3N 04-03 18:30
PROVIDERS: ADMIT Allergy & Immunology; ATTEND Surgery
PROC: HZ2ZZZZ Detoxification Services for Substance Abuse Treatment (ICD-10-PCS; principal; 2023-04-02)
DX: F10.230 Alcohol dependence with withdrawal, uncomplicated (principal); F12.20 Cannabis dependence, uncomplicated; F17.210 Nicotine dependence, cigarettes, uncomplicated; E87.6 Hypokalemia; E78.5 Hyperlipidemia, unspecified; I10 Essential (primary) hypertension; G47.00 Insomnia, unspecified; Z86.69 Personal history of other diseases of the nervous system and sense organs
CPT/HCPCS: 36415; 80053; 85027; 86780; 87635; 90677

== ENCOUNTER 2024-03-21 12:36 | Emergency (ER) | payer OTHER ==
[2024-03-21 12:51] VITALS: BP 146/78; PULSE 62; RESP 18; TEMP 98.5; BMI 33.5
[2024-03-21 15:50] LABS: HIV INTERPRETATION NEGATIVE (NEGATIVE)
== END 2024-03-21 15:20 | disposition home or self-care (01) ==
LOC: JERFT 12:36
PROC: 0H98XZZ Drainage of Buttock Skin, External Approach (ICD-10-PCS; principal; 2024-03-21)
DX: L02.31 Cutaneous abscess of buttock (principal)
CPT/HCPCS: 36415; 86803; 87389; 99283-25

== ENCOUNTER 2024-04-28 10:58 | Emergency (ER) | payer OTHER ==
[2024-04-28 11:09] VITALS: BP 147/86; PULSE 64; RESP 18; TEMP 98.6; BMI 23.7
[2024-04-28] MEDS ORDERED: KETOROLAC TROMETHAMINE 30 MG/1 ML VIAL ONE (11:51)
[2024-04-28] MEDS: KETOROLAC TROMETHAMINE 30 MG/1 ML VIAL IM ONE (11:56)
[2024-04-28] MEDS: LIDOCAINE 2.5%/PRILOCAINE 2.5% 30 GRAM TUBE TP ONE ×2 (12:14→12:28)
[2024-04-28] MEDS: LIDOCAINE HCL 4% TOPICAL SOLN (50 ML/BOTTLE) TP ONE (12:28)
== END 2024-04-28 14:04 | disposition home or self-care (01) ==
LOC: JERFT 10:58
PROC: 0X950ZZ Drainage of Left Axilla, Open Approach (ICD-10-PCS; principal; 2024-04-28)
PROC: 3E0233Z Introduction of Anti-inflammatory into Muscle, Percutaneous Approach (ICD-10-PCS; 2024-04-28)
DX: L02.412 Cutaneous abscess of left axilla (principal)
CPT/HCPCS: 99284-25

== ENCOUNTER 2024-05-01 11:46 | Emergency (ER) | payer OTHER ==
[2024-05-01 12:04] VITALS: BP 130/85; PULSE 66; RESP 18; TEMP 97.9; BMI 24.4
[2024-05-01] MEDS ORDERED: BACITRACIN ZINC 15 GM TUBE TOPICAL OINTMENT ONE (12:30)
[2024-05-01] MEDS: BACITRACIN ZINC 15 GM TUBE TOPICAL OINTMENT TP ONE (12:36)
== END 2024-05-01 12:51 | disposition home or self-care (01) ==
LOC: JERFT 11:46
DX: L73.2 Hidradenitis suppurativa (principal); Z48.01 Encounter for change or removal of surgical wound dressing
CPT/HCPCS: 99283-25

== ENCOUNTER 2024-06-04 12:42 | Emergency (ER) | payer OTHER ==
[2024-06-04 12:52] VITALS: BP 141/83; PULSE 67; RESP 18; TEMP 97.8; BMI 24.4
== END 2024-06-04 15:17 | disposition home or self-care (01) ==
LOC: JERFT 12:42
DX: S80.211A Abrasion, right knee, initial encounter (principal); L02.212 Cutaneous abscess of back [any part, except buttock and flank]; W10.9XXA Fall (on) (from) unspecified stairs and steps, initial encounter
CPT/HCPCS: 73562-TC-RT-FY; 99283-25

== ENCOUNTER 2024-11-03 12:54 | Inpatient (IN) | payer OTHER ==
[2024-11-03] MEDS ORDERED: LORazepam 2 MG/ML SDV VIAL ONE ×2 (13:46→15:46)
[2024-11-03 13:51] LABS: VENOUS BASE EXCESS 0.4 mmol/L (-2-2); VENOUS O2 SATURATION 90.5 % (70-80); VENOUS PCO2 38.1 mmHg (38-52); VENOUS PH 7.427 (7.310-7.410)
[2024-11-03 13:54] LABS: ABSOLUTE IMMATURE GRANULOCYTES 0.07 x10^3/uL (0.0-0.031); BASOPHILS # 0.03 x10^3/uL (0.01-0.08); HEMATOCRIT 39.8 % (40.1-51.0); HEMOGLOBIN 13.9 g/dL (13.7-17.5); MCHC 34.9 g/dl (32.3-36.5); MEAN CELL VOLUME 91.3 fl (79.0-92.2); MEAN PLT VOLUME 9.3 fl (9.4-12.4); MONOCYTE % 6.7 % (5.3-12.2); PLATELET COUNT 140 x10^3/uL (163-337); RDW 14.5 % (12.1-15.9)
[2024-11-03 14:01] LABS: INR 0.88 (0.83-1.09); PROTHROMBIN TIME (PATIENT) 9.7 SEC (9.7-13.0)
[2024-11-03 14:04] LABS: ACTIVATED PTT 24.8 SECONDS (25.2-36.5)
[2024-11-03] MEDS: SODIUM CHLORIDE 0.9% 1000 ML INFUS.BAG IV ONE (14:18)
[2024-11-03 14:19] LABS: CHLORIDE 99 mmol/L (98-107); POTASSIUM 3.7 mmol/L (3.5-5.1); SODIUM 138 mmol/L (136-145)
[2024-11-03 14:21] LABS: CALCIUM 8.9 mg/dL (8.5-10.1)
[2024-11-03] MEDS ORDERED: ONDANSETRON 4 MG/2 ML VIAL ONE (14:21)
[2024-11-03 14:22] LABS: ALBUMIN 3.8 g/dl (3.4-5.0); ANION GAP 14 mmol/L (4-13); BLOOD UREA NITROGEN 10.1 mg/dL (7-18); CO2 25 mmol/L (21-32); GLUCOSE,RANDOM 195 mg/dL (74-106); MAGNESIUM 1.6 mg/dL (1.8-2.4)
[2024-11-03 14:24] LABS: SGPT/ALT 75 U/L (13-61)
[2024-11-03 14:25] LABS: CREATININE 0.9 mg/dL (0.55-1.3); PHOSPHOROUS 1.9 mg/dL (2.5-4.9); SGOT/AST 115 U/L (15-37)
[2024-11-03 14:26] LABS: BILIRUBIN,TOTAL 0.4 mg/dL (0.2-1); TOT PROT 7.3 g/dl (6.4-8.2)
[2024-11-03 14:27] LABS: ALK PHOS 164 U/L (45-117)
[2024-11-03] MEDS: ONDANSETRON 4 MG/2 ML VIAL IVPUSH ONE (14:29)
[2024-11-03] MEDS ORDERED: NAPH,MB-DB/K PH,MBDB POWDER PACKET ONE (15:46)
[2024-11-03] MEDS ORDERED: MAGNESIUM SULFATE IN WATER 2 GM/50 ML IVPB IVPB ONE (15:47)
[2024-11-03] MEDS: LORazepam 2 MG/ML SDV VIAL IVPUSH ONE (16:05)
[2024-11-03] MEDS: MAGNESIUM SULFATE IN WATER 2 GM/50 ML IVPB IVPB ONE (16:06)
[2024-11-03] MEDS: NAPH,MB-DB/K PH,MBDB POWDER PACKET PO ONE (16:06)
[2024-11-03] MEDS: LORazepam 2 MG/ML SDV VIAL IM ONE (16:23)
[2024-11-03] MEDS ORDERED: hydrOXYzine PAMOATE 50 MG CAPSULE (FP) PO PRN (17:03)
[2024-11-03] MEDS ORDERED: GABAPENTIN 100 MG CAPSULE PO PRN (17:03)
[2024-11-03 17:07] LABS: URINE APPEARANCE CLEAR; URINE BILIRUBIN NEGATIVE (NEGATIVE); URINE COLOR YELLOW; URINE GLUCOSE (UA) TRACE (NEGATIVE); URINE KETONE NEGATIVE (NEGATIVE)
[2024-11-03 17:08] LABS: URINE LEUK ESTERASE NEGATIVE (NEGATIVE); URINE NITRITE NEGATIVE (NEGATIVE); URINE PROTEIN 2+ (NEGATIVE); URINE UROBILINOGEN 0.2 mg/dL (0.2-1.0)
[2024-11-03] MEDS: LORazepam 1 MG TABLET PO PRN (19:58)
[2024-11-03] MEDS: MIRTAZAPINE 15 MG TABLET (FP) PO SCH (21:22)
[2024-11-03 22:05] VITALS: BMI 25.4
[2024-11-04 07:37] LABS: HEMOGLOBIN 14.1 g/dL (13.7-17.5); MCHC 33.6 g/dl (32.3-36.5); MEAN CELL VOLUME 92.1 fl (79.0-92.2); MEAN PLT VOLUME 10.1 fl (9.4-12.4); PLATELET COUNT 123 x10^3/uL (163-337); RDW 14.6 % (12.1-15.9)
[2024-11-04 07:52] LABS: POTASSIUM 3.3 mmol/L (3.5-5.1)
[2024-11-04 08:10] LABS: ALBUMIN 3.7 g/dl (3.4-5.0); BLOOD UREA NITROGEN 6.9 mg/dL (7-18); CALCIUM 8.6 mg/dL (8.5-10.1); MAGNESIUM 2.2 mg/dL (1.8-2.4)
[2024-11-04 08:13] LABS: CREATININE 0.7 mg/dL (0.55-1.3); PHOSPHOROUS 2.4 mg/dL (2.5-4.9)
[2024-11-04 08:15] LABS: BILIRUBIN,TOTAL 0.9 mg/dL (0.2-1); TOT PROT 6.9 g/dl (6.4-8.2)
[2024-11-04] MEDS: FLU VACCINE (FLUARIX) PF 45 MCG/0.5 ML SYRINGE 2024-2025 IM ONE (09:31)
[2024-11-04] MEDS: THIAMINE 100 MG TABLET PO SCH (09:34)
[2024-11-04] MEDS: FOLIC ACID 1 MG TABLET (FP) PO SCH (09:34)
[2024-11-05 07:20] LABS: INR 0.94 (0.83-1.09); PROTHROMBIN TIME (PATIENT) 10.2 SEC (9.7-13.0)
[2024-11-05 07:27] LABS: ABSOLUTE IMMATURE GRANULOCYTES 0.03 x10^3/uL (0.0-0.031); BASOPHILS # 0.04 x10^3/uL (0.01-0.08); EOSINOPHIL % 0.9 % (0.8-7.0); EOSINOPHILS # 0.07 x10^3/uL (0.04-0.54); HEMATOCRIT 44.7 % (40.1-51.0); HEMOGLOBIN 15.2 g/dL (13.7-17.5); MEAN CELL VOLUME 93.1 fl (79.0-92.2); MEAN PLT VOLUME 10.2 fl (9.4-12.4); MONOCYTE # 0.72 x10^3/uL (0.30-0.82); MONOCYTE % 9.3 % (5.3-12.2); PLATELET COUNT 120 x10^3/uL (163-337); RDW 14.2 % (12.1-15.9)
[2024-11-05 07:32] LABS: POTASSIUM 3.5 mmol/L (3.5-5.1)
[2024-11-05 07:36] LABS: CALCIUM 9.2 mg/dL (8.5-10.1)
[2024-11-05 07:37] LABS: ALBUMIN 3.9 g/dl (3.4-5.0); BLOOD UREA NITROGEN 11.7 mg/dL (7-18)
[2024-11-05 07:40] LABS: CREATININE 0.8 mg/dL (0.55-1.3)
[2024-11-05 07:42] LABS: TOT PROT 7.4 g/dl (6.4-8.2)
[2024-11-05 12:18] LABS: HEPATITIS B SURFACE AG MATERN NON-REACTIVE (NONREACTIVE)
[2024-11-05 12:47] LABS: HCV DIAGNOSTIC IN-HOUSE W/RFLX NON-REACTIVE (NONREACTIVE)
[2024-11-06] MEDS: hydrOXYzine PAMOATE 25 MG CAPSULE (FP) PO PRN (06:09)
[2024-11-06 06:18] VITALS: RESP 20
[2024-11-06] MEDS: LORazepam 0.5 MG TABLET PO PRN (09:35)
[2024-11-06 09:41] VITALS: BP 148/104; PULSE 115; TEMP 98.2
== END 2024-11-06 10:37 | disposition home or self-care (01) | DRG 53 ==
LOC: JER 12:54 → JERBED 13:29 → J4W 19:07
PROVIDERS: ADMIT Family Medicine; ATTEND Family Medicine
PROC: HZ2ZZZZ Detoxification Services for Substance Abuse Treatment (ICD-10-PCS; principal; 2024-11-03)
DX: R56.9 Unspecified convulsions (principal); K70.10 Alcoholic hepatitis without ascites; F10.239 Alcohol dependence with withdrawal, unspecified; G47.00 Insomnia, unspecified; D69.6 Thrombocytopenia, unspecified; E83.42 Hypomagnesemia; K76.0 Fatty (change of) liver, not elsewhere classified; I10 Essential (primary) hypertension; E78.5 Hyperlipidemia, unspecified; F12.20 Cannabis dependence, uncomplicated; F41.8 Other specified anxiety disorders; R79.89 Other specified abnormal findings of blood chemistry; R19.7 Diarrhea, unspecified
CPT/HCPCS: 0241U-QW; 36415; 70450-TC; 71045-TC-FY; 76705-TC; 80053; 80307; 81003; 82550; 82553; 82803; 82962; 83690; 83735; 84100; 85025; 85027; 85610; 85730; 86708; 86803; 87086; 87340; 87517; 93005; 93010; 99291

== ENCOUNTER 2025-03-26 13:38 | Inpatient (IN) | payer OTHER ==
[2025-03-26 14:06] VITALS: BMI 26.2
[2025-03-26] MEDS ORDERED: NICOTINE POLACRILEX 2 MG LOZENGE BC PRN (16:16)
[2025-03-26] MEDS ORDERED: POLYETHYLENE GLYCOL (HEALTHYLAX) 3350 17 GM PACKET PO PRN (16:16)
[2025-03-26] MEDS ORDERED: guaiFENesin 600 MG TABLET.ER (FP) PO PRN (16:16)
[2025-03-26] MEDS ORDERED: ACETAMINOPHEN 325 MG TABLET (FP) PO PRN (16:16)
[2025-03-26] MEDS ORDERED: BENZONATATE 200 MG CAPSULE PO PRN (16:16)
[2025-03-26] MEDS ORDERED: BENZOCAINE/MENTHOL (CHLORASEPTIC ) LOZENGE MM PRN (16:16)
[2025-03-26] MEDS ORDERED: DICYCLOMINE HCL 10 MG CAPSULE PO PRN (16:16)
[2025-03-26] MEDS ORDERED: NALOXONE (NARCAN) HCL 4 MG/0.1 ML SPRAY NS PRN (16:16)
[2025-03-26] MEDS ORDERED: ONDANSETRON *ODT* 4 MG TABLET SL PRN (16:16)
[2025-03-26] MEDS ORDERED: IBUPROFEN 400 MG TABLET (FP) PO PRN (16:16)
[2025-03-26] MEDS ORDERED: MAGNESIUM HYDROX 2400MG/30ML ORAL SUSPENSION 30 ML CUP PO PRN (16:16)
[2025-03-26] MEDS ORDERED: METOPROLOL TARTRATE 25 MG TABLET (FP) ONE (16:51)
[2025-03-26] MEDS: METOPROLOL TARTRATE 50 MG TABLET (FP) PO ONE (16:52)
[2025-03-26] MEDS: levETIRAcetam 500 MG TABLET (FP) PO SCH (22:05)
[2025-03-26] MEDS: THIAMINE 100 MG TABLET PO SCH (22:06)
[2025-03-26] MEDS: SILVER SULFADIAZINE 1% TOP CREAM 50 GM JAR TP SCH (22:06)
[2025-03-26] MEDS: MELATONIN 5 MG TABLETS PO SCH (22:06)
[2025-03-27 09:59] LABS: MCHC 33.9 g/dl (32.3-36.5); MEAN CELL VOLUME 93.2 fl (79.0-92.2); MEAN PLT VOLUME 10.3 fl (9.4-12.4); RDW 12.2 % (12.1-15.9)
[2025-03-27] MEDS: FOLIC ACID 1 MG TABLET (FP) PO SCH (10:08)
[2025-03-27] MEDS: PRENATAL VITAMINS W/ FOLIC ACID TABLET (FP) PO SCH (10:08)
[2025-03-27] MEDS: hydrOXYzine PAMOATE 25 MG CAPSULE (FP) PO PRN (10:10)
[2025-03-27 10:11] LABS: GLUCOSE,RANDOM 115 mg/dL (74-106); TOT PROT 7.8 g/dl (6.4-8.2)
[2025-03-27 10:12] LABS: CO2 30 mmol/L (21-32)
[2025-03-27 10:14] LABS: ALK PHOS 104 U/L (40-150)
[2025-03-27 10:17] LABS: CREATININE 0.78 mg/dL (0.55-1.3); SGOT/AST 74 U/L (5-34); SGPT/ALT 48 U/L (0-55)
[2025-03-27] MEDS: GABAPENTIN 100 MG CAPSULE PO SCH (11:13)
[2025-03-27] MEDS: NICOTINE POLACRILEX 2 MG GUM BUC PRN (13:25)
[2025-03-27] MEDS: amLODIPine BESYLATE 5 MG TABLET (FP) PO SCH (15:14)
[2025-03-27] MEDS: POTASSIUM CHLORIDE ORAL LIQUID 20 MEQ/15 ML PO ONE (15:21)
[2025-03-27] MEDS: MAG HYDROX/AL HYDROX/SIMETH 30 ML UNIT-DOSE CUP PO PRN (18:00)
[2025-03-27] MEDS ORDERED: MIRTAZAPINE 15 MG TABLET (FP) ONE (21:42)
[2025-03-27] MEDS: MIRTAZAPINE 30 MG TABLET PO SCH (22:20)
[2025-03-28 10:32] LABS: GLUCOSE,RANDOM 105.0 mg/dL (74-106)
[2025-03-28 10:33] LABS: TOT PROT 7.1 g/dl (6.4-8.2)
[2025-03-28 10:34] LABS: CO2 29.0 mmol/L (21-32)
[2025-03-28 10:35] LABS: ALK PHOS 97.0 U/L (40-150)
[2025-03-28 10:38] LABS: CREATININE 0.78 mg/dL (0.55-1.3); SGOT/AST 58.0 U/L (5-34); SGPT/ALT 47.0 U/L (0-55)
[2025-03-28] MEDS: METHOCARBAMOL 500 MG TABLET PO PRN (10:43)
[2025-03-28] MEDS: POTASSIUM CHLORIDE ORAL LIQUID 20 MEQ/15 ML PO ONE ×2 (12:12→12:51)
[2025-03-28] MEDS: IBUPROFEN 600 MG TABLET (FP) PO PRN (12:13)
[2025-03-28] MEDS: BISMUTH SUBSALICYLATE 524 MG/30 ML PO PRN (17:07)
[2025-03-28] MEDS ORDERED: MIRTAZAPINE 15 MG TABLET (FP) ONE (21:39)
[2025-03-29] MEDS: LOPERAMIDE HCL 2 MG CAPSULE PO PRN (09:50)
[2025-03-29 10:06] LABS: GLUCOSE,RANDOM 109.0 mg/dL (74-106)
[2025-03-29 10:08] LABS: CO2 27.0 mmol/L (21-32)
[2025-03-29 10:12] LABS: CREATININE 0.77 mg/dL (0.55-1.3)
[2025-03-29] MEDS: MAGNESIUM OXIDE 400 MG TABLET (FP) PO ONE (14:20)
[2025-03-29] MEDS ORDERED: MIRTAZAPINE 15 MG TABLET (FP) ONE (21:33)
[2025-03-30] MEDS ORDERED: MIRTAZAPINE 15 MG TABLET (FP) ONE (21:10)
[2025-03-31 09:44] VITALS: BP 151/98; PULSE 109; RESP 17; TEMP 97.3
== END 2025-03-31 09:58 | disposition home or self-care (01) | DRG 775 ==
LOC: YASAS 13:38 → Y3N 16:32
PROVIDERS: ADMIT Neuromusculoskeletal Medicine & OMM; ATTEND Allergy & Immunology
PROC: HZ2ZZZZ Detoxification Services for Substance Abuse Treatment (ICD-10-PCS; principal; 2025-03-26)
DX: F10.230 Alcohol dependence with withdrawal, uncomplicated (principal); F12.20 Cannabis dependence, uncomplicated; F17.210 Nicotine dependence, cigarettes, uncomplicated; F41.1 Generalized anxiety disorder; E87.6 Hypokalemia; E83.42 Hypomagnesemia; E78.2 Mixed hyperlipidemia; G40.509 Epileptic seizures related to external causes, not intractable, without status epilepticus
CPT/HCPCS: 36415; 80048; 80053; 80307; 83735; 85027; 86780